=== PATIENT | female | born 2005 | race Caucasian/White ===

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

== ENCOUNTER 2024-01-31 13:08 | Emergency (ER) | payer MEDICAID, SELFPAY ==
[2024-01-31 13:11] VITALS: BP 164/98; PULSE 76; RESP 15; TEMP 36.7; O2SAT 98
[2024-01-31 13:14] VITALS: BP 164/98; PULSE 76; RESP 15; TEMP 36.7; O2SAT 98
--- NOTE | 2024-01-31 13:21 | ED.GENADUL_ITS ---
Discharge Plan Disposition Patient Disposition: Home Condition: Stable Discharge Details Clinical Impression: Cough Primary Care Provider: Gabe Turpin ED Provider: Darrell Painting Home Meds and New Rx's Prescriptions: No Action escitalopram oxalate 20 mg tablet 20 mg PO DAILY Qty: 90 4RF omeprazole 40 mg capsule,delayed release(DR/EC) 40 mg PO DAILY Qty: 90 4RF Discharge Instructions Instructions: Acute Cough (ED) Additional Instructions: You were seen in the emergency department for your acute cough without cold symptoms. You do have a history of pulmonary embolism, we performed laboratory studies that showed no evidence of right heart strain or damage to the heart, no evidence of PE with a negative D-dimer, your chest x-ray shows no acute abnormality and no pneumonia. It may be allergy symptoms that are causing these symptoms with your cough. If you have any concerning continuation of cough especially coughing up blood, tachycardia or fast heart rate or respiratory distress please return to the ED otherwise try [id number] allergy medicines for congestion. Referrals: Gabe Turpin, WHITING MACHINE OPERATOR [Primary Care Provider] - Discharge Data Discharge Date/Time-TO BE ENTERED AT DEPARTURE: 01/31/24 15:42 HPI General Date/Time Provider Initiated Documentation: 01/31/24 13:21 . HPI Narrative: 18 year-old female presents to ED today by POV/ambulating with a chief complaint of sore throat and dry cough with onset for longer than the past week. Quality described as nonproductive cough, mild chest discomfort, sore throat without dysphagia, no radiation to hemoptysis, fever, inability to tolerate PO intake, nausea/vomiting, severe headache. Severity is described as moderate. Palliating factors include nothing specific. Provoking factors include nothing specific. Events leading up to the incident/Associated Symptoms: Patient here for work-up with history of PE last year. Patient not anticoagulated. Related Data Home Medications Medication Instructions Recorded Confirmed omeprazole 40 mg capsule,delayed 40 mg PO DAILY #90 caps 03/24/23 01/31/24 release escitalopram oxalate 20 mg tablet 20 mg PO DAILY #90 tabs 12/09/23 01/31/24 Previous Rx's Medication Instructions Recorded omeprazole 40 mg capsule,delayed 40 mg PO DAILY #90 caps 03/24/23 release escitalopram oxalate 20 mg tablet 20 mg PO DAILY #90 tabs 12/09/23 Allergies Allergy/AdvReac Type Severity Reaction Status Date / Time No Known Allergies Allergy Unverified 12/09/23 08:46 General Stated Complaint: RespSymp MEDINA: 3 Review of Systems All systems reviewed & are unremarkable except as noted in HPI and below Exam Narrative Exam Narrative: GENERAL APPEARANCE: Well-nourished, non-toxic, awake and alert, atraumatic, no acute distress. SKIN: Warm, pink, dry, intact, without rashes/lesions/ulcerations. HEAD: Normocephalic, atraumatic, normal hair distribution for gender/age. EYES: Pupils PERRLA, EOMs intact without nystagmus, normal conjunctiva, no exudates on lids/lashes. ENT: Nares patent, no circumoral cyanosis, no facial swelling, no exudate posterior oropharynx NECK: Supple, trachea midline, painless cervical ROM. LUNGS/CHEST: Lungs CTA bilaterally - no rhonchi/rales/wheezes diffusely, non- labored respirations, normal A/P diameter, symmetrical expansion, no chest wall deformity HEART (CV/PV): Regular rate and rhythm without murmur, no peripheral edema, no JVD. ABDOMEN: Soft, non-distended, no guarding. MSK: Normal ROM, no swelling/deformity to bilateral UEs or LEs, moving all extremities without weakness, no cyanosis, spine midline without tenderness, normal curvature. NEURO: Mental Status AAOx4 - alert to person, place, time, events No facial droop, no forehead involvement. Motor: No focal weakness - strength 5/5 in bilateral UEs and LEs, proximal and distal, symmetric. Sensory: sensation intact to light touch globally. Gait normal: patient ambulated without ataxia into ED room. PSYCH: euthymic, cooperative, pleasant, appropriate speech Course Vital Signs Vital signs: Vital Signs Temperature 36.7 C 01/31/24 13:11 Pulse 76 01/31/24 13:11 Respiratory Rate 15 01/31/24 13:11 Blood Pressure 164/98 H 01/31/24 13:11 Pulse Oximetry 98 01/31/24 13:11 Temperature 36.7 C 01/31/24 13:14 Temperature Source Tympanic 01/31/24 13:14 Pulse 76 01/31/24 13:14 Respiratory Rate 15 01/31/24 13:14 Respiratory Effort Normal 01/31/24 13:14 Respiratory Depth Normal 01/31/24 13:14 Blood Pressure 164/98 H 01/31/24 13:14 Blood Pressure Position Sitting 01/31/24 13:14 Pulse Oximetry 98 01/31/24 13:14 Oxygen Delivery Method Room Air 01/31/24 13:14 Oxygen Flow Rate 0 01/31/24 13:14 Pain Level 0 01/31/24 13:14 Medical Decision Making This dictation utilizes [id number] dictation software and may contain unedited grammatical errors. 18 y/o F presents to ED today with a chief complaint of sore throat, dry cough, ongoing for more than a week- no fevers, nausea/vomiting, abdominal pain, severe shortness of breath, endorses mild chest discomfort. Patient has history of PE last year, not on OCPs currently. Patients' medical history: PE. Family and social history: noncontributory. Pertinent exam findings / vital signs include lungs CTA, no respiratory distress, no tachycardia, benign posterior oropharynx. Differential / pathologies of concern include URI, PNA, PTX, PE. Diagnostic studies of: -CBC, CMP, D-Dimer, BNP, Trop, CRP, EKG, CXR. -CBC benign -CMP benign -D-dimer negative -BNP/Trop no signs of R heart strain -EKG ischemic changes, sinus yoshi 56 bpm -CXR no acute pathology Interventions of: -none. ED Course/Assessment/Plan: 18-year-old female with a history of PE presents with dry cough and chest discomfort, D-dimer is negative for PE workup, Trope and BNP are negative and showed no findings of right heart strain, EKG is benign, chest x-ray shows no pneumonia. Likely viral URI/allergies counseled on OTC cold medicines and strict return criteria for any worsening despite treatment any tachycardia, any worsening chest pain. Findings not consistent with pneumonia, PTX, PE, ACS, right heart strain. Disposition of Cough. Patient verbalized understanding of the plan and return to ED criteria and engaged in shared decision making. Medical Records Medical records reviewed: Yes I reviewed the patient's medical records. Imaging Data Radiologic Study: Attestation: I personally reviewed and interpreted this imaging study as follows: Imaging: X-Ray Radiologist's impression: Exam: XR Chest Exam date and time: 01/31/2024 2:49 PM Age: 18 years old Clinical indication: Other: Cough TECHNIQUE: Imaging protocol: Radiologic exam of the chest. Views: 2 views. COMPARISON: CR XR CHEST 2V PA LATERAL 03/19/2023 3:58 PM FINDINGS: Lungs: Unremarkable. No consolidation. Pleural spaces: Unremarkable. No pleural effusion. No pneumothorax. Heart/Mediastinum: Unremarkable. No cardiomegaly. Bones/joints: Unremarkable. IMPRESSION: No acute findings. Dictated and Authenticated by: Valdo Hardin MD. Ordering:EILEEN Ramírez MD Lab Data Lab results reviewed: Yes I reviewed the patient's lab results. Labs: Laboratory Tests Range/Units 01/31/24 13:50 WBC (4.4-10.8) 10^3/uL 8.25 RBC (3.93-5.22) 10^6/uL 5.31 H Hgb (11.2-15.7) g/dL 15.0 Hct (36.0-46.0) % 45.0 MCV (80-95) fL 85 MCH (27.0-33.0) pg 28.2 MCHC (32.0-36.0) % 33.3 RDW (11.7-14.6) % 13.7 Plt Count (130-400) 10^3/uL 311 MPV (8.0-11.0) fL 9.4 Immature Gran % % 0.2 Neutrophils % % 62.7 Lymphocytes % % 30.1 Monocytes % % 5.9 Eosinophils % % 0.7 Basophils % % 0.4 Nucleated RBC % (0.0-0.3) % 0.0 Absolute Neutrophils (1.2-6.7) 10^3/uL 5.17 Absolute Lymphocytes (1.2-3.4) 10^3/uL 2.48 Absolute Monocytes (0.1-0.8) 10^3/uL 0.49 Absolute Eosinophils (0.0-0.7) 10^3/uL 0.06 Absolute Basophils (0.0-0.2) 10^3/uL 0.03 D-Dimer (<500) ng/mlFEU 304 Sodium (136-145) mmol/L 139 Potassium (3.5-5.1) mmol/L 4.0 Chloride (98-107) mmol/L 105 Carbon Dioxide (21.0-32.0) mmol/L 22.5 Anion Gap (3-11) mmol/L 11.5 H BUN (7-18) mg/dL 10 Creatinine (0.55-1.02) mg/dL 0.6 Est GFR (CKD-EPI 2020) (mL/min/1.73m2) 132.52 Glucose (74-106) mg/dL 92 Calcium (8.5-10.1) mg/dL 8.5 Total Bilirubin (0.2-1.0) mg/dL 0.6 AST (15-37) U/L 22 ALT (14-59) U/L 30 Alkaline Phosphatase (46-116) U/L 47 Troponin I (< or =60) ng/L < 50 C-Reactive Protein (<or=0.5) mg/dL 0.96 H NT-Pro-B Natriuret Pep (<300) pg/mL 290 Total Protein (6.4-8.2) g/dL 7.8 Albumin (3.4-5.0) g/dL 3.6 Quality:[facility] Health Related Social Needs: No Data to Display PFSH All Active Problems (Updated 01/31/24 @ 15:28 by LEANDER Torrez) Cough (Acute) Depression with anxiety (Acute) Left knee pain (Acute) Astigmatism (Acute) Dysarthria (Acute) Eczema (Acute) Asthma (Chronic) Morbid obesity (Acute) Aspiration pneumonia (Acute) Oligomenorrhea (Acute) Pulmonary embolism (Chronic) Surgical History No pertinent past surgical history Family History Mother No problems noted. Father , 41 Heart disease Sister No problems noted. Sister No problems noted. Maternal Grandfather , 40 Emphysema lung COPD (chronic obstructive pulmonary disease) Paternal Grandfather No problems noted. Maternal Grandmother , 40 Bone cancer Paternal Grandmother No problems noted. Other Diabetes Hypertension Social History Smoking/Tobacco Use Status: Never Second Hand Exposure: Yes Smoking risk assessment performed?: Yes Alcohol Intake: never Drug use: Occasionally Substance use type: marijuana Caregiver/Support person: No Household members: family Housing: house Communication Needs: None Do you need help understanding health information?: Rarely current occupation: [employer] Pets and animals: Yes Pets and animals: cat(s) and dog(s) Sexually active: No Do you think of yourself as: bisexual Current gender identity: female What is your relationship status?: never How often do you talk on the phone with friends or family?: once per week How often do you get together with friends or relatives?: once per week How often do you attend adventism or pentecostal services?: decline to answer Do you belong to any clubs or organized social groups?: no Panel score (0-1 are the most socially isolated patients): 0 What type of physical activity do you participate in: weight lifting Duration: 15-30 minutes/day Frequency: 3-4 times per week Enma/Muslim: No preference Special enma needs: No Seatbelt use: always Helmet use: Yes Helmet use: always Drive 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
--- NOTE | 2024-01-31 13:25 | RT.EKG_ITS ---
APPROVED REPORT Exam: Resting ECG Reason for Exam: cough, syncope Patient Location: E HR:56 bpm ECG Measurements Heart Rate 56 AXIS NC 136 P -8 QRSd 83 QRS 48 QT 393 T 20 QTc 381 Conclusion Sinus bradycardia 56 no stemi
[2024-01-31 13:32] VITALS: BP 125/82; PULSE 62; O2SAT 98
[2024-01-31 13:54] LABS: Abs Immature Grans 0.02 10^3/uL (0.0-0.06); Absolute Basophil Count 0.03 10^3/uL (0.0-0.2); Absolute Eosinophil Count 0.06 10^3/uL (0.0-0.7); Absolute Lymphocyte Count 2.48 10^3/uL (1.2-3.4); Absolute Monocyte Count 0.49 10^3/uL (0.1-0.8); Absolute Neutrophil Count 5.17 10^3/uL (1.2-6.7); Basophils % 0.4 %; Eosinophils % 0.7 %; Immature Grans % 0.2 %; Lymphocytes % 30.1 %; MCH 28.2 pg (27.0-33.0); MCHC 33.3 % (32.0-36.0); MCV 85 fL (80-95); MPV 9.4 fL (8.0-11.0); Monocytes % 5.9 %; Neutrophils % 62.7 %; Platelet Count 311 10^3/uL (130-400); RBC 5.31 10^6/uL (3.93-5.22); RDW 13.7 % (11.7-14.6); RDW-SD 42.5 fL; WBC 8.25 10^3/uL (4.4-10.8)
[2024-01-31 14:18] LABS: ALT 30 U/L (14-59); AST 22 U/L (15-37); Albumin 3.6 g/dL (3.4-5.0); Alkaline Phosphatase 47 U/L (46-116); Anion Gap 11.5 mmol/L (3-11); BUN 10 mg/dL (7-18); Bilirubin, Total 0.6 mg/dL (0.2-1.0); C-Reactive Protein 0.96 mg/dL (<or=0.5); CO2 22.5 mmol/L (21.0-32.0); CREATININE 0.6 mg/dL (0.55-1.02); Calcium 8.5 mg/dL (8.5-10.1); Chloride 105 mmol/L (98-107); Estimated GFR 132.52 (mL/min/1.73m2); Glucose 92 mg/dL (74-106); NT-proBNP 290 pg/mL (<300); Sodium 139 mmol/L (136-145); Total Protein 7.8 g/dL (6.4-8.2)
[2024-01-31 14:22] VITALS: BP 126/85; PULSE 61; O2SAT 99
[2024-01-31 14:24] LABS: D-Dimer 304 ng/mlFEU (<500); Troponin I < 50 ng/L (< or =60)
--- NOTE | 2024-01-31 14:59 | DI.RAD_ITS ---
Exam(s) XR CHEST 2V PA LATERAL EXAM: XR CHEST 2V PA LATERAL CLINICAL HISTORY: cough. TECHNIQUE: 2D digital imaging was performed. COMPARISON: No exams available for comparison FINDINGS: 2 views: Heart size is normal. The mediastinum is not widened. Lungs are clear. No infiltrates nor pleural effusions. IMPRESSION: No acute pulmonary findings. DATA REPOSITORY: RADIATION DOSE DELIVERED:
--- NOTE | 2024-01-31 15:18 | DI.VRAD_ITS ---
PROCEDURE INFORMATION: Exam: XR Chest Exam date and time: 01/31/2024 2:49 PM Age: 18 years old Clinical indication: Other: Cough TECHNIQUE: Imaging protocol: Radiologic exam of the chest. Views: 2 views. COMPARISON: CR XR CHEST 2V PA LATERAL 03/19/2023 3:58 PM FINDINGS: Lungs: Unremarkable. No consolidation. Pleural spaces: Unremarkable. No pleural effusion. No pneumothorax. Heart/Mediastinum: Unremarkable. No cardiomegaly. Bones/joints: Unremarkable. IMPRESSION: No acute findings. Dictated and Authenticated by: Valdo Hardin MD. Ordering:EILEEN Ramírez MD
== END 2024-01-31 15:42 | disposition home or self-care (01) ==
PROVIDERS: Emergency Provider Physician Assistant; PCP Nurse Practitioner Family
DX: R05.1 Acute cough (principal); R07.0 Pain in throat; Z86.711 Personal history of pulmonary embolism
CPT/HCPCS: 80053; 93005; 99283; 71046; 83880; 84484; 85025; 85379; 86140; 93010

== ENCOUNTER 2024-02-11 16:12 | Outpatient (REF) | payer MEDICAID, SELFPAY ==
[2024-02-11 22:24] LABS: Clarity Sl Cloudy (Clear); Specific Gravity 1.016 (1.005-1.025)
[2024-02-11 22:25] LABS: Bacteria Few HPF (Negative); Bilirubin Color Interference (Negative); Blood Color Interference (Negative); C & S Indicated? No/Sq. Contamination; Casts Negative LPF (Negative); Crystals Negative HPF (Negative); Epithelial Cells Moderate HPF (Negative); Glucose Color Interference mg/dL (Negative); Ketones Color Interference mg/dL (Negative); Leukocyte Esterase Color Interference (Negative); Mucus Negative (Negative); Nitrite Color Interference (Negative); RBC >50 HPF (0-2); Urobilinogen Color Interference mg/dL (Up to 0.2); WBC 20-50 HPF (0-5)
== END 2024-02-11 16:13 | disposition home or self-care (01) ==
LOC: LBN 16:12
PROVIDERS: PCP Nurse Practitioner Family; Visit Provider Nurse Practitioner Family
DX: R35.0 Frequency of micturition (principal); R30.0 Dysuria; N39.0 Urinary tract infection, site not specified
CPT/HCPCS: 81003; 81015

== ENCOUNTER 2024-03-04 21:04 | Emergency (ER) | payer MEDICAID, SELFPAY ==
--- NOTE | 2024-03-04 21:00 | RT.EKG_ITS ---
APPROVED REPORT Exam: Resting ECG Reason for Exam: presyncope Patient Location: E HR:86 bpm ECG Measurements Heart Rate 86 AXIS SC 142 P 26 QRSd 87 QRS 45 QT 353 T 18 QTc 422 Conclusion Sinus rhythm...normal P axis, V-rate 60- 99 sinus rhtyhm, normal axis, normal intervals, non ischemic
[2024-03-04 21:07] VITALS: BP 151/74; PULSE 82; RESP 18; TEMP 36; O2SAT 99
--- NOTE | 2024-03-04 21:43 | ED.GENADUL_ITS ---
Discharge Plan Disposition Patient Disposition: Home Condition: Improving Discharge Details Chief Complaint: RespSymp Clinical Impression: Syncope Primary Care Provider: Gabe Turpin ED Provider: Carlton Gill Home Meds and New Rx's Prescriptions: No Action escitalopram oxalate 20 mg tablet 20 mg PO DAILY Qty: 90 4RF omeprazole 40 mg capsule,delayed release(DR/EC) 40 mg PO DAILY Qty: 90 4RF Discharge Instructions Instructions: Syncope (Fainting) (DC) Additional Instructions: Please follow-up with your primary care physician. Please return to the emergency department for any worsening symptoms HPI General Date/Time Provider Initiated Documentation: 03/04/24 21:07 . HPI Narrative: 18-year-old female history of PE completed course of anticoagulation no longer on anticoagulation, presents after coughing fit while in the car briefly lost consciousness came to immediately, no chest pain or shortness of breath feeling asymptomatic currently. Related Data Home Medications Medication Instructions Recorded Confirmed omeprazole 40 mg capsule,delayed 40 mg PO DAILY #90 caps 03/24/23 03/04/24 release escitalopram oxalate 20 mg tablet 20 mg PO DAILY #90 tabs 12/09/23 03/04/24 Previous Rx's Medication Instructions Recorded omeprazole 40 mg capsule,delayed 40 mg PO DAILY #90 caps 03/24/23 release escitalopram oxalate 20 mg tablet 20 mg PO DAILY #90 tabs 12/09/23 Allergies Allergy/AdvReac Type Severity Reaction Status Date / Time No Known Allergies Allergy Unverified 03/04/24 21:10 General Stated Complaint: RespSymp MEDINA: 4 Review of Systems Narrative: Review of Systems Constitutional: negative Eyes: negative ENT: negative Cardiovascular: Syncope Respiratory: Cough Gastrointestinal: negative : negative Musculoskeletal: negative Skin: negative Neurologic: negative Psych: negative Exam Narrative Exam Narrative: Physical Examination General: alert, awake, cooperative, resting comfortably, no acute distress HEENT: normocephalic, atraumatic; PERRL, EOM intact, conjunctiva normal; no nasal discharge; moist mucous membranes, oral and pharyngeal mucosa normal, tolerating secretions Neck: supple, trachea midline; full ROM Chest: normal to inspection Respiratory: normal respiratory effort, speaking in full sentences, clear to auscultation, no wheezing, rales or rhonchi Cardiac: regular rate, regular rhythm, S1S2 intact, no murmurs rubs or gallops GI: abdomen soft, non-tender, non-distended; no palpable mass or hepatosplenomegaly Skin: no lesions, rashes or trauma appreciated Neuro: AAOx3, normal speech, moving all extremities Extremities: No peripheral edema Psych: Appropriate mood and affect Course Vital Signs Vital signs: Vital Signs Temperature 36.0 C L 03/04/24 21:07 Pulse 82 03/04/24 21:07 Respiratory Rate 18 03/04/24 21:07 Blood Pressure 151/74 H 03/04/24 21:07 Pulse Oximetry 99 03/04/24 21:07 Temperature 36.0 C L 03/04/24 21:07 Temperature Source Temporal Artery Scan 03/04/24 21:07 Pulse 82 03/04/24 21:07 Respiratory Rate 18 03/04/24 21:07 Respiratory Effort Normal, Non-Labored 03/04/24 21:09 Blood Pressure 151/74 H 03/04/24 21:07 Blood Pressure Position Sitting 03/04/24 21:07 Pulse Oximetry 99 03/04/24 21:07 Oxygen Delivery Method Room Air 03/04/24 21:07 Oxygen Flow Rate 0 03/04/24 21:07 Pain Level 0 03/04/24 21:07 Medical Decision Making 18-year-old female history of PE completed course of anticoagulation, presents after coughing fit that caused her to lose consciousness briefly, no chest pain or shortness of breath hemodynamically stable afebrile nontoxic normal sinus rhythm nonischemic on EKG no signs of arrhythmia, no signs of dehydration no signs of trauma no signs of intoxication, low suspicion for recurrent PE given history and physical high clinical suspicion for vasovagal episode in the setting of coughing fit low suspicion for ACS aortic pathology pneumothorax pneumonia dehydration or electrolyte derangement low suspicion for malignant arrhythmia. Counseled patient at length regarding my thought process, patient comfortable following up closely with primary care physician does not feel strongly about obtaining labs and imaging at this time. Home care instructions and strict return precautions given. test negative. Quality:SDOH Health Related Social Needs: No Data to Display PFSH All Active Problems (Updated 03/04/24 @ 21:46 by Carlton Gill MD) Syncope (Chronic) Depression with anxiety (Acute) Left knee pain (Acute) Astigmatism (Acute) Dysarthria (Acute) Eczema (Acute) Asthma (Chronic) Morbid obesity (Acute) Aspiration pneumonia (Acute) Oligomenorrhea (Acute) Pulmonary embolism (Chronic) Surgical History No pertinent past surgical history Family History Mother No problems noted. Father , 41 Heart disease Sister No problems noted. Sister No problems noted. Maternal Grandfather , 40 Emphysema lung COPD (chronic obstructive pulmonary disease) Paternal Grandfather No problems noted. Maternal Grandmother , 40 Bone cancer Paternal Grandmother No problems noted. 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 Pets and animals: Yes Pets and animals: cat(s) and dog(s) Sexually active: No Do you think of yourself as: bisexual Current gender identity: female What is your relationship status?: never How often do you talk on the phone with friends or family?: once per week How often do you get together with friends or relatives?: once per week How often do you attend mosque or pentecostal services?: decline to answer Do you belong to any clubs or organized social groups?: no Panel score (0-1 are the most socially isolated patients): 0 What type of physical activity do you participate in: weight lifting Duration: 15-30 minutes/day Frequency: 3-4 times per week Enma/Anglican: No preference Special enma needs: No Seatbelt use: always Helmet use: Yes Helmet use: always Drive 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
== END 2024-03-04 21:50 | disposition home or self-care (01) ==
PROVIDERS: Emergency Provider Emergency Medicine; PCP Nurse Practitioner Family
DX: R55 Syncope and collapse (principal); Z86.711 Personal history of pulmonary embolism
CPT/HCPCS: 81025; 93005; 99284; 93010; 99283

== ENCOUNTER 2024-07-05 08:31 | Emergency (ER) | payer MEDICAID, SELFPAY ==
[2024-07-05 08:37] VITALS: BP 148/85; PULSE 92; RESP 16; TEMP 36.6; O2SAT 94
[2024-07-05 08:39] VITALS: BP 150/81; PULSE 91; RESP 16; TEMP 36.6; O2SAT 93
--- NOTE | 2024-07-05 08:44 | W.ED.GENAD ---
Discharge Plan Disposition Patient Disposition: Home Discharge Details Clinical Impression: Hoarseness of voice Primary Care Provider: Gabe Turpin ED Provider: Jurgen Angeles Home Meds and New Rx's Prescriptions: Continued albuterol sulfate 90 mcg/actuation HFA aerosol inhaler 2 inh inhalation Q6H PRN (Reason: shortness of breath or wheezing) Qty: 18 0RF (DME) Aerochamber MV Spacer See Rx Instructions .Route Qty: 1 0RF Rx Instructions: As directed omeprazole 40 mg capsule,delayed release(DR/EC) 40 mg PO DAILY Qty: 90 4RF escitalopram oxalate 20 mg tablet 20 mg PO DAILY Qty: 90 4RF Discharge Instructions Additional Instructions: You were seen in the emergency department for your cough. Your chest x-ray showed no sign of pneumonia. You are receiving steroids which should last for several days. If you develop worsening shortness of breath please return to the emergency department. Otherwise please follow-up with your primary care provider later this week. Discharge Data Discharge Date/Time-TO BE ENTERED AT DEPARTURE: 07/05/24 10:34 HPI General Date/Time Provider Initiated Documentation: 07/05/24 08:44. HPI Narrative: MDM This is an overall very well-appearing normothermic and not tachycardic 19-year-old female with cough fever slight wheeze concerning for exacerbation of reactive airway disease versus viral URI. No significant tonsillar exudates based on Centor criteria I did not swab for strep. Good range of motion in neck so my suspicion is low for retropharyngeal abscess. No nuchal rigidity to suggest meningitis. Uvula is midline so I am not concerned for peritonsillar abscess. Patient did have more significant left-sided wheezes compared to right so we will obtain chest x-ray to assess for pneumonia. No trauma to suggest increased risk for pneumothorax. No pain or proportion to suggest necrotizing soft tissue infection. No dysuria or frequency so my suspicion is low for UTI. No dental pain to suggest periapical abscess. I considered PE however the patient is not having any significant chest pain or leg pain. 10:07 AM Chest x-ray without any acute cardiopulmonary process. I have left facial advised PCP follow-up later this week. Patient and I discussed she should return if she develops fevers chills begins vomiting or sticks any falls. She understood her return indications and was discharged with empiric trial of expectant outpatient management. Chronic conditions affecting the care of the patient: Elevated BMI History obtained from an outside historian: N/A External record review: N/A Diagnostic interpretations performed by me: Per my independent interpretation chest x-ray shows: Question left-sided infiltrate ]Medications: Dexamethasone Social determinants of health affecting disposition: N/A Management discussed with: N/A Treatment/interventions considered: Strep swab but deferred Response to therapies provided: N/A HPI This is a 19-year-old female with history of asthma elevated BMI aspiration pneumonia PE right emergency department via private vehicle with her in the setting of fever cough for the past approximately 1 week. Patient reports that yesterday she only had 1 fever. She says that she lost her voice 3 days ago. She has been using her inhaler more. She has never been hospitalized nor intubated in setting of her asthma. She endorses sore throat. She has not taken any recent falls. She has not been nauseous nor vomiting. She is not having any chest pain. She smokes marijuana daily but denies routine tobacco and alcohol. Exam General: Well-appearing in no acute distress speaking in complete sentences. Hoarse voice. Head: Normocephalic, atraumatic. Eye: Extraocular eye movements intact. No conjunctival injection. No scleral icterus. Ear, nose, mouth, throat: Grossly normal inspection. Normal voice, handling secretions normally. Uvula midline. No significant posterior oropharynx erythema. No tonsillar exudates. Neck: Trachea midline. Good range of motion in neck Cardiovascular: Well-perfused distal extremities. Respiratory: Nonlabored respiration. Trace left-sided trace wheeze. No respiratory distress. Gastrointestinal: Nondistended abdomen. Musculoskeletal: No edema. Moving all 4 extremities spontaneously. Skin: Normal for age and race, grossly normal temperature and turgor. No acute rash. Neurologic: Alert and appropriate, no apparent acute deficits. Psychiatric: Mood and manner are appropriate. Grooming and personal hygiene are appropriate. Related Data Home Medications ?Medication ?Instructions ?Recorded ?Confirmed albuterol sulfate 90 mcg/actuation 2 inh inhalation Q6H PRN shortness 03/08/24 07/05/24 aerosol inhaler of breath or wheezing #18 grams inhalational spacing device #1 ea 03/08/24 07/05/24 (Aerochamber MV spacer) escitalopram oxalate 20 mg tablet 20 mg PO DAILY #90 tabs 04/05/24 07/05/24 omeprazole 40 mg capsule,delayed 40 mg PO DAILY #90 caps 04/05/24 07/05/24 release Previous Rx's ?Medication ?Instructions ?Recorded albuterol sulfate 90 mcg/actuation 2 inh inhalation Q6H PRN shortness 03/08/24 aerosol inhaler of breath or wheezing #18 grams inhalational spacing device #1 ea 03/08/24 (Aerochamber MV spacer) escitalopram oxalate 20 mg tablet 20 mg PO DAILY #90 tabs 04/05/24 omeprazole 40 mg capsule,delayed 40 mg PO DAILY #90 caps 04/05/24 release Allergies Allergy/AdvReac Type Severity Reaction Status Date / Time No Known Allergies Allergy Unverified 07/05/24 08:36 General Stated Complaint: RespSymp MEDINA: 4 Course Vital Signs Vital signs: Vital Signs Temperature 36.6 C 07/05/24 08:37 Pulse 92 H 07/05/24 08:37 Respiratory Rate 16 07/05/24 08:37 Blood Pressure 148/85 H 07/05/24 08:37 Pulse Oximetry 94 07/05/24 08:37 Temperature 36.6 C 07/05/24 08:39 Temperature Source Temporal Artery Scan 07/05/24 08:39 Pulse 91 H 07/05/24 08:39 Respiratory Rate 16 07/05/24 08:39 Respiratory Effort Normal, Non-Labored 07/05/24 08:39 Blood Pressure 150/81 H 07/05/24 08:39 Blood Pressure Position Sitting 07/05/24 08:39 Pulse Oximetry 93 07/05/24 08:39 Oxygen Delivery Method Room Air 07/05/24 08:39 Oxygen Flow Rate 0 07/05/24 08:37 Pain Level 6 07/05/24 08:39 Medical Decision Making Quality:SDOH Health Related Social Needs: Health related social needs inadequate housing(Z59.1) Health related social needs details N/A PFSH All Active Problems (Updated 07/05/24 @ 10:08 by Jurgen Angeles MD) Hoarseness of voice (Acute) Depression with anxiety (Acute) Left knee pain (Acute) Astigmatism (Acute) Dysarthria (Acute) Eczema (Acute) Asthma (Chronic) Morbid obesity (Acute) Aspiration pneumonia (Acute) Oligomenorrhea (Acute) Pulmonary embolism (Chronic) Surgical History No pertinent past surgical history Family History (Updated 05/06/24 @ 12:16 by Iesha Echevarria) Mother Depression Substance use disorder Father , 41 Heart disease Asthma Hyperlipidemia Hypertension Substance use disorder Sister Depression Sister Depression Maternal Grandfather , 40 Emphysema lung COPD (chronic obstructive pulmonary disease) Alcohol use disorder Depression Substance use disorder Paternal Grandfather Alcohol use disorder Substance use disorder Maternal Grandmother , 40 Bone cancer Alcohol use disorder Depression Substance use disorder Paternal Grandmother Substance use disorder Other Diabetes Social History (Updated 05/06/24 @ 12:14 by Iesha Echevarria) Smoking/Tobacco Use Status: Never Second Hand Exposure: Yes Smoking risk assessment performed?: Yes Alcohol Intake: never Drug use: Daily Substance use type: marijuana Adopted: No Caregiver/Support person: No Household members: spouse Housing: house Number of Children: 0 number of grandchildren: 0 Communication Needs: None Education Level: high school Do you need help understanding health information?: Never 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 Pets and animals: Yes Pets and animals: cat(s) and dog(s) Sexually active: No Do you think of yourself as: lesbian/moreno/homosexual Current gender identity: female What is your relationship status?: How often do you talk on the phone with friends or family?: three or more times per week How often do you get together with friends or relatives?: once per week How often do you attend mosque or pentecostal services?: 1-3 times per year Do you belong to any clubs or organized social groups?: no Panel score (0-1 are the most socially isolated patients): 2 Enma/Jewish: No preference Special enma needs: No Seatbelt use: always Helmet use: Yes Helmet use: always 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
--- NOTE | 2024-07-05 08:45 | DI.RAD_ITS ---
Exam(s) XR CHEST 2V PA LATERAL EXAM: XR CHEST 2V PA LATERAL CLINICAL HISTORY: Shortness of breath cough. TECHNIQUE: 2D digital imaging was performed. COMPARISON: CR,XR XR CHEST 2V PA LATERAL from 01/31/2024 FINDINGS: 2 views: Heart size is normal. The mediastinum is not widened. Lungs are clear. No infiltrates nor pleural effusions. IMPRESSION: No acute pulmonary findings. DATA REPOSITORY: RADIATION DOSE DELIVERED:
[2024-07-05] MEDS: Dexamethasone 4 MG TAB 8 MG PO (09:16)
[2024-07-05 10:33] VITALS: PULSE 82; RESP 16; O2SAT 96
== END 2024-07-05 10:34 | disposition home or self-care (01) ==
PROVIDERS: Emergency Provider Emergency Medicine; PCP Nurse Practitioner Family
DX: R05.1 Acute cough (principal); R49.0 Dysphonia; R06.2 Wheezing; Z87.09 Personal history of other diseases of the respiratory system
CPT/HCPCS: 99283; 71046; J8540

== ENCOUNTER 2024-08-02 20:28 | Emergency (ER) | payer MEDICAID, SELFPAY ==
--- NOTE | 2024-08-02 20:30 | RT.EKG_ITS ---
APPROVED REPORT Exam: Resting ECG Reason for Exam: syncope Patient Location: E HR:92 bpm ECG Measurements Heart Rate 92 AXIS IL 154 P 65 QRSd 88 QRS 73 QT 356 T 28 QTc 441 Conclusion Sinus rhythm 92 normal axis no stemi
[2024-08-02 20:38] VITALS: BP 137/86; PULSE 92; RESP 16; TEMP 36.6; O2SAT 96
--- NOTE | 2024-08-02 21:02 | ED.GENADUL_ITS ---
Discharge Plan Disposition Patient Disposition: Home Condition: Stable Discharge Details Clinical Impression: Syncope, Acute bronchospasm Primary Care Provider: Gabe Turpin ED Provider: Gilda Schaeffer Home Meds and New Rx's Prescriptions: No Action albuterol sulfate 90 mcg/actuation HFA aerosol inhaler 2 inh inhalation Q6H PRN (Reason: shortness of breath or wheezing) Qty: 18 0RF (DME) Aerochamber MV Spacer See Rx Instructions .Route Qty: 1 0RF Rx Instructions: As directed omeprazole 40 mg capsule,delayed release(DR/EC) 40 mg PO DAILY Qty: 90 4RF escitalopram oxalate 20 mg tablet 20 mg PO DAILY Qty: 90 4RF Discharge Instructions Additional Instructions: * avoid smoking pot * CT scan does not reveal a blood clot and your EKG is normal. * you are likely having a bronchospasm from smoking and this is causing you to pass out. HPI General Date/Time Provider Initiated Documentation: 08/02/24 20:37 . Limitations to Documentation: no limitations . Information obtained by: patient . HPI Narrative: 19-year-old female with past medical history including unprovoked pulmonary embolism presents for evaluation of syncope. She reports that yesterday and today she has had syncopal events. Both times she has been smoking pot and became short of breath and then she passed out. She states that once she came up awake she started having coughing. It would cough so hard that she would throw up. The patient denies any preceding symptoms and has not had syncope prior to the smoking pot. She reports that over the last few months he has noted that her asthma symptoms seem to be worse. She completed a 6-month course of Eliquis last July 2023. Related Data Home Medications ?Medication ?Instructions ?Recorded ?Confirmed albuterol sulfate 90 mcg/actuation 2 inh inhalation Q6H PRN shortness 03/08/24 08/02/24 aerosol inhaler of breath or wheezing #18 grams inhalational spacing device #1 ea 03/08/24 08/02/24 (Aerochamber MV spacer) escitalopram oxalate 20 mg tablet 20 mg PO DAILY #90 tabs 04/05/24 08/02/24 omeprazole 40 mg capsule,delayed 40 mg PO DAILY #90 caps 04/05/24 08/02/24 release Previous Rx's ?Medication ?Instructions ?Recorded albuterol sulfate 90 mcg/actuation 2 inh inhalation Q6H PRN shortness 03/08/24 aerosol inhaler of breath or wheezing #18 grams inhalational spacing device #1 ea 03/08/24 (Aerochamber MV spacer) escitalopram oxalate 20 mg tablet 20 mg PO DAILY #90 tabs 04/05/24 omeprazole 40 mg capsule,delayed 40 mg PO DAILY #90 caps 04/05/24 release Allergies Allergy/AdvReac Type Severity Reaction Status Date / Time No Known Allergies Allergy Verified 08/02/24 20:43 General Stated Complaint: Dizzy/Sync MEDINA: 3 Exam Narrative Exam Narrative: Review of Systems: All systems reviewed & are unremarkable except as noted in HPI and below Well-developed, no acute distress NCAT RRR no murmur Unlabored respiratory effort clear bilaterally Nondistended abdomen Extremities w/o edema Course Vital Signs Vital signs: Vital Signs Temperature 36.6 C 08/02/24 20:38 Pulse 92 H 08/02/24 20:38 Respiratory Rate 16 08/02/24 20:38 Blood Pressure 137/86 08/02/24 20:38 Pulse Oximetry 96 08/02/24 20:38 Temperature 36.6 C 08/02/24 20:38 Pulse 92 H 08/02/24 20:38 Respiratory Rate 16 08/02/24 20:38 Respiratory Effort Normal 08/02/24 20:44 Respiratory Depth Normal 08/02/24 20:44 Respiratory Pattern Normal 08/02/24 20:44 Blood Pressure 137/86 08/02/24 20:38 Pulse Oximetry 96 08/02/24 20:38 Oxygen Delivery Method Room Air 08/02/24 20:38 Oxygen Flow Rate 0 08/02/24 20:38 Pain Level 0 08/02/24 20:38 Medical Decision Making Emergent evaluation of syncope. Patient is asymptomatic at this time and hemodynamically stable. EKG reviewed and independently interpreted: Sinus 92 normal axis. The patient is likely having bronchospasm after smoking pot and this is causing her syncopal episodes however given her history of blood clots, I think that it would be prudent to evaluate with a CTA. Reviewed. No leukocytosis or anemia. BMP is without electrolyte derangement. CTA without evidence of PE. advised to stop smoking pot. Quality:SDOH Health Related Social Needs: Health related social needs inadequate housing(Z59.1) Health related social needs details N/A PFSH All Active Problems (Updated 08/02/24 @ 22:36 by Gilda Schaeffer MD) Acute bronchospasm (Acute) Syncope (Chronic) Patient desires (Acute) Hoarseness of voice (Acute) Depression with anxiety (Acute) Left knee pain (Acute) Astigmatism (Acute) Dysarthria (Acute) Eczema (Acute) Asthma (Chronic) Morbid obesity (Acute) Aspiration pneumonia (Acute) Oligomenorrhea (Acute) Pulmonary embolism (Chronic) Surgical History No pertinent past surgical history Family History Mother Depression Substance use disorder Father , 41 Heart disease Asthma Hyperlipidemia Hypertension Substance use disorder Sister Depression Sister Depression Maternal Grandfather , 40 Emphysema lung COPD (chronic obstructive pulmonary disease) Alcohol use disorder Depression Substance use disorder Paternal Grandfather Alcohol use disorder Substance use disorder Maternal Grandmother , 40 Bone cancer Alcohol use disorder Depression Substance use disorder Paternal Grandmother Substance use disorder Other Diabetes Social History Smoking/Tobacco Use Status: Never Second Hand Exposure: Yes Smoking risk assessment performed?: Yes Alcohol Intake: never Drug use: Daily Substance use type: marijuana Adopted: No Caregiver/Support person: No Household members: spouse Housing: house Number of Children: 0 number of grandchildren: 0 Communication Needs: None Education Level: high school Do you need help understanding health information?: Never 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 Pets and animals: Yes Pets and animals: cat(s) and dog(s) Sexually active: No Do you think of yourself as: lesbian/moreno/homosexual Current gender identity: female What is your relationship status?: How often do you talk on the phone with friends or family?: three or more times per week How often do you get together with friends or relatives?: once per week How often do you attend hindu or pentecostal services?: 1-3 times per year Do you belong to any clubs or organized social groups?: no Panel score (0-1 are the most socially isolated patients): 2 Duration: 15-30 minutes/day Frequency: 3-4 times per week Enma/Rastafarian: No preference Special enma needs: No Seatbelt use: always Helmet use: Yes Helmet use: always Drive intox or ride w/intox truck 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
[2024-08-02 21:18] LABS: Abs Immature Grans 0.03 10^3/uL (0.0-0.06); Absolute Basophil Count 0.05 10^3/uL (0.0-0.2); Absolute Eosinophil Count 0.11 10^3/uL (0.0-0.7); Absolute Lymphocyte Count 3.18 10^3/uL (1.2-3.4); Absolute Monocyte Count 0.56 10^3/uL (0.1-0.8); Absolute Neutrophil Count 5.73 10^3/uL (1.2-6.7); Basophils % 0.5 %; Eosinophils % 1.1 %; HCT 43.5 % (36.0-46.0); HGB 14.1 g/dL (11.2-15.7); Immature Grans % 0.3 %; Lymphocytes % 32.9 %; MCH 27.8 pg (27.0-33.0); MCHC 32.4 % (32.0-36.0); MCV 86 fL (80-95); MPV 9.2 fL (8.0-11.0); Monocytes % 5.8 %; Neutrophils % 59.4 %; Platelet Count 310 10^3/uL (130-400); RBC 5.08 10^6/uL (3.93-5.22); RDW 13.2 % (11.7-14.6); RDW-SD 40.7 fL; WBC 9.66 10^3/uL (4.4-10.8)
[2024-08-02] MEDS: Normal Saline - Diluent 50 ML VIAL IJ (21:24)
[2024-08-02] MEDS: Omnipaque 350 MG/ML 100 ML BTL IJ (21:25)
[2024-08-02 21:26] LABS: Anion Gap 7.8 mmol/L (3-11); BUN 11 mg/dL (7-18); CO2 26.2 mmol/L (21.0-32.0); CREATININE 0.7 mg/dL (0.55-1.02); Calcium 8.9 mg/dL (8.5-10.1); Chloride 104 mmol/L (98-107); Glucose 92 mg/dL (74-106); Potassium 3.6 mmol/L (3.5-5.1); Sodium 138 mmol/L (136-145)
--- NOTE | 2024-08-02 21:38 | DI.CT_ITS ---
Exam(s) CT CHEST PE CTA EXAM: CT CHEST PE CTA CLINICAL HISTORY: sob syncope prior pe. TECHNIQUE: Imaging Protocol: CT angiography of the chest was performed using pulmonary embolus ranjeet col. Multi planar reconstructions were performed. CONTRAST MATERIAL: Intravenous: Omnipaque 350 Contrast volume: 100 cc COMPARISON: CT CT CHEST PE CTA from 12/08/2022 CR XR CHEST 2V PA LATERAL from 07/05/2024 FINDINGS: CHEST: PULMONARY ARTERIES: There are no intraluminal filling defects to suggest acute pulmonary emboli. LUNGS: No evidence of pulmonary infarction. Right lung is clear. There are mild benign-appearing in creased markings in the anterior segment of the left upper lobe and superior lingular segment. No ai r bronchograms.. There are no pleural effusions. MEDIASTINUM: There is no hilar nor mediastinal adenopathy. CARDIAC: Heart size normal. No pericardial effusion.Caliber of the thoracic aorta is within normal l imits. No dissection. There is no significant shift of the interventricular septum. PARTIALLY VISUALIZED UPPERMOST ABDOMEN: No adrenal masses. OSSEOUS: No significant osseous lesions.No fractures.. IMPRESSION: 1. No evidence of acute pulmonary emboli. No evidence of pulmonary infarction. 2. Mild benign-appearing increased markings are noted in the anterior segment of the left upper lobe and superior lingular segment the left lung. No pleural effusions RADIATION DOSE DELIVERED: 123.49mGy.cm Total DLP DATA REPOSITORY: All CT scans at this facility are submitted to the National Radiology Data Registry (NRDR) Dose Index Registry (DIR) with the [employer] (A[employer]). RADIATION OPTIMIZATION: All CT scans at this facility use at least one of these dose optimization te chniques: automated exposure control; mA and/or kV adjustment per patient size (includes targeted exa ms where dose is matched to clinical indication); or iterative reconstruction.
--- NOTE | 2024-08-02 23:05 | DI.VRAD_ITS ---
PROCEDURE INFORMATION: Exam: CTA Chest With Contrast Exam date and time: 08/02/2024 9:26 PM Age: 19 years old Clinical indication: Shortness of breath; Patient HX: Syncope, HX of pe TECHNIQUE: Imaging protocol: Computed tomographic angiography of the chest with contrast. Exam focused on the arteries. 3D rendering (Not supervised by radiologist): MIP and/or 3D reconstructed images were created by the technologist. Contrast material: OMNIPAQUE 350; Contrast volume: 100 ml; Contrast route: INTRAVENOUS (IV); COMPARISON: CT CHEST PE CTA 12/08/2022 2:42 PM FINDINGS: Pulmonary arteries: Normal. No pulmonary emboli. Aorta: Unremarkable. No aortic aneurysm. No aortic dissection. Lungs: Unremarkable. No consolidation. No masses. Pleural spaces: Unremarkable. No pneumothorax. No pleural effusion. Heart: Unremarkable. No cardiomegaly. No pericardial effusion. Lymph nodes: Unremarkable. No enlarged lymph nodes. Bones/joints: Unremarkable. No acute fracture. Soft tissues: Unremarkable. IMPRESSION: No acute findings. Dictated and Authenticated by: James Rothman MD. Ordering:[facility] Laury Montalvo MD
[2024-08-02 23:20] VITALS: BP 116/82; PULSE 68; RESP 16; TEMP 36.7; O2SAT 98
== END 2024-08-02 23:23 | disposition home or self-care (01) ==
PROVIDERS: Emergency Provider Emergency Medicine; PCP Nurse Practitioner Family
DX: R55 Syncope and collapse (principal); J98.01 Acute bronchospasm; Z86.711 Personal history of pulmonary embolism; F12.90 Cannabis use, unspecified, uncomplicated
CPT/HCPCS: 36415; 71275; 80048; 93005; 99285; 85025; 93010; 99284; J3490

== ENCOUNTER 2024-12-01 19:45 | Emergency (ER) | payer MEDICAID, SELFPAY ==
[2024-12-01 19:54] VITALS: BP 137/83; PULSE 70; RESP 16; TEMP 36.6; O2SAT 98
[2024-12-01 19:59] VITALS: BP 137/83; PULSE 70; RESP 16; TEMP 36.6; O2SAT 97
[2024-12-01] MEDS: Benzocaine 20% Gel 30 GM JAR MM (20:16)
--- NOTE | 2024-12-01 20:16 | W.ED.GENAD ---
Discharge Plan Disposition Patient Disposition: Home Condition: Stable Discharge Details Clinical Impression: Pain, dental Primary Care Provider: Gabe Turpin ED Provider: Gilda Schaeffer Home Meds and New Rx's Prescriptions: No Action albuterol sulfate 90 mcg/actuation HFA aerosol inhaler 2 inh inhalation Q6H PRN (Reason: shortness of breath or wheezing) Qty: 18 0RF (DME) Aerochamber MV Spacer See Rx Instructions .Route Qty: 1 0RF Rx Instructions: As directed omeprazole 40 mg capsule,delayed release(DR/EC) 40 mg PO DAILY Qty: 90 4RF escitalopram oxalate 20 mg tablet 20 mg PO DAILY Qty: 90 4RF Discharge Instructions Instructions: Dental Pain ED Additional Instructions: Use a topical medication for numbing as needed. Continue Tylenol every 4 hours, not to exceed 4 g in a 24-hour period. please follow-up with your dentist as scheduled if you develop any facial swelling, drainage or gum irritation and swelling, please present for reevaluation. HPI General Date/Time Provider Initiated Documentation: 12/01/24 20:08. Limitations to Documentation: no limitations. Information obtained by: patient. HPI Narrative: 19-year-old female without significant past medical history presents for evaluation of right lower tooth pain. She reports that it feels like her wisdom tooth. It is not associated with facial swelling, gum fullness or drainage. She reports pain over the last week. She did take a dose of Motrin today. She has an appointment scheduled with her dentist in a few weeks. Related Data Home Medications ?Medication ?Instructions ?Recorded ?Confirmed albuterol sulfate 90 mcg/actuation 2 inh inhalation Q6H PRN shortness 03/08/24 12/01/24 aerosol inhaler of breath or wheezing #18 grams inhalational spacing device #1 ea 03/08/24 12/01/24 (Aerochamber MV spacer) escitalopram oxalate 20 mg tablet 20 mg PO DAILY #90 tabs 04/05/24 12/01/24 omeprazole 40 mg capsule,delayed 40 mg PO DAILY #90 caps 04/05/24 12/01/24 release Previous Rx's ?Medication ?Instructions ?Recorded albuterol sulfate 90 mcg/actuation 2 inh inhalation Q6H PRN shortness 03/08/24 aerosol inhaler of breath or wheezing #18 grams inhalational spacing device #1 ea 03/08/24 (Aerochamber MV spacer) escitalopram oxalate 20 mg tablet 20 mg PO DAILY #90 tabs 04/05/24 omeprazole 40 mg capsule,delayed 40 mg PO DAILY #90 caps 04/05/24 release Allergies Allergy/AdvReac Type Severity Reaction Status Date / Time No Known Allergies Allergy Verified 12/01/24 20:00 General Stated Complaint: DentalOral MEDINA: 4 Exam Narrative Exam Narrative: Review of Systems: All systems reviewed & are unremarkable except as noted in HPI and below Well-developed, no acute distress NCAT No facial swelling, no cervical adenopathy, floor of mouth is soft, right lower wisdom tooth is tender to palpation without any evidence of odontogenic abscess or gum irritation or abnormality Course Vital Signs Vital signs: Vital Signs Temperature 36.6 C 12/01/24 19:54 Pulse 70 12/01/24 19:54 Respiratory Rate 16 12/01/24 19:54 Blood Pressure 137/83 12/01/24 19:54 Pulse Oximetry 98 12/01/24 19:54 Temperature 36.6 C 12/01/24 19:59 Temperature Source Oral 12/01/24 19:59 Pulse 70 12/01/24 19:59 Respiratory Rate 16 12/01/24 19:59 Blood Pressure 137/83 12/01/24 19:59 Blood Pressure Position Sitting 12/01/24 19:59 Pulse Oximetry 97 12/01/24 19:59 Oxygen Delivery Method Room Air 12/01/24 19:54 Oxygen Flow Rate 0 12/01/24 19:54 Pain Level 4 12/01/24 20:02 Medical Decision Making Emergent evaluation of dental pain. On examination there is no sign of deep space infection or odontogenic abscess. Her wisdom tooth appears slightly impacted. Based on her examination I do not feel that antibiotics are indicated. She was provided some topical benzocaine and recommended to take Tylenol. Return precautions advised otherwise patient should follow-up with her dentist. Quality:SDOH Health Related Social Needs: Health related social needs details N/A PFSH All Active Problems (Updated 12/01/24 @ 20:10 by Gilda Schaeffer MD) Pain, dental (Acute) Patient desires (Acute) Depression with anxiety (Acute) Left knee pain (Acute) Astigmatism (Acute) Dysarthria (Acute) Eczema (Acute) Asthma (Chronic) Morbid obesity (Acute) Aspiration pneumonia (Acute) Oligomenorrhea (Acute) Pulmonary embolism (Chronic) Surgical History No pertinent past surgical history Family History Mother Depression Substance use disorder Father , 41 Heart disease Asthma Hyperlipidemia Hypertension Substance use disorder Sister Depression Sister Depression Maternal Grandfather , 40 Emphysema lung COPD (chronic obstructive pulmonary disease) Alcohol use disorder Depression Substance use disorder Paternal Grandfather Alcohol use disorder Substance use disorder Maternal Grandmother , 40 Bone cancer Alcohol use disorder Depression Substance use disorder Paternal Grandmother Substance use disorder Other Diabetes Social History Smoking/Tobacco Use Status: Never Second Hand Exposure: Yes Smoking risk assessment performed?: Yes Alcohol Intake: never Drug use: Daily Substance use type: marijuana Adopted: No Caregiver/Support person: No Household members: spouse Housing: house Number of Children: 0 number of grandchildren: 0 Communication Needs: None Education Level: high school Do you need help understanding health information?: Never 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 Pets and animals: Yes Pets and animals: cat(s) and dog(s) Sexually active: No Do you think of yourself as: lesbian/moreno/homosexual Current gender identity: female What is your relationship status?: How often do you talk on the phone with friends or family?: three or more times per week How often do you get together with friends or relatives?: once per week How often do you attend caodaism or gnosticism services?: 1-3 times per year Do you belong to any clubs or organized social groups?: no Panel score (0-1 are the most socially isolated patients): 2 Duration: 15-30 minutes/day Frequency: 3-4 times per week Enma/Zoroastrianism: No preference Special enma needs: No Seatbelt use: always Helmet use: Yes Helmet use: always Drive intox or ride w/intox tram driver: No Firearms in home: No Do you feel safe at home: Yes Do you feel safe in your relationship?: Yes Victim of physical abuse: No Victim of emotional abuse: No Victim of sexual abuse: No Would you like helpful sources: No Female Reproductive History Menstrual control method: none History History 0 Para Hx # Term Pregnancies Multiple births Hx # Pregnancies Ectopic pregnancies AB induced Hx Number of Living Children AB spontaneous PAWSS Have you Been Recently Intoxicated or Drunk Within the Last 30 days?: No Have you Ever Experienced Previous Episodes of Alcohol Withdrawal?: No Have you ever Experienced Withdrawal Seizures?: No Have you ever Experienced Delirium Tremens(DT)s?: No Have you ever undergone Alcohol Rehabilitation Treatment (i.e, inpt ot outpatient treatment programs)?: No Have you ever Experienced Blackouts?: No Have you ever Combined Alcohol with other Downers within the last 90 days?: No Have you ever Combined Alcohol with any other Substance of Abuse during the last 90 days?: No Positive Blood Alcohol level on Presentation? [PCS.BAL]: No Evidence of Increased Autonomic Activity (i.e. HR>120, tremor, sweating, agitation, nausea)?: No Result: 0
== END 2024-12-01 20:18 | disposition home or self-care (01) ==
LOC: ER 20:24
PROVIDERS: Emergency Provider Emergency Medicine; PCP Nurse Practitioner Family
DX: K08.89 Other specified disorders of teeth and supporting structures (principal)
CPT/HCPCS: 99283

== ENCOUNTER 2025-07-16 11:24 | Emergency (ER) | payer MEDICAID, SELFPAY ==
[2025-07-16 11:30] VITALS: BP 121/76; PULSE 86; RESP 20; TEMP 36.8; O2SAT 94
--- NOTE | 2025-07-16 11:30 | DI.RAD_ITS ---
Exam(s) XR KNEE RT 4V AP,LAT,BARBARA,PAT EXAM: XR KNEE RT 4V AP,LAT,BARBARA,PAT CLINICAL HISTORY: fall onto R. knee, pain with weight bearing. TECHNIQUE: 2D digital imaging was performed. COMPARISON: CR XR KNEE LT 3V AP,LAT,BARBARA from 04/29/2023 FINDINGS: Four views There is abnormal lateral position of the patella and there is a a fracture defect off the posterior medial facet of the patella. The fracture fragment is evident adjacent to the outer aspect of the lateral femoral condyle. There is indistinctness of the medial patellar retinaculum. There is a prominent joint effusion-hemarthrosis. Bone density is normal. However, there is incidental note of an eccentric sclerotic bone lesion in the proximal tibial metaphysis-diaphysis which measures 4.2 cm length. 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 IMPRESSION: Findings are consistent with recent lateral dislocation/impaction of the patella. There is a fracture off the posterior medial patella which remains lateral to the lateral femoral condyle, this being the site of recent dislocation/impaction of the patella. Joint effusion-hemarthrosis. Also suspect tearing of the medial patellar retinaculum. Incidental note of sclerotic eccentric bone lesion in the proximal tibia as described above. 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 Preliminary V rad report was reviewed. Final report called by myself to ER physician 07/16/2025 4:05 p.m. DATA REPOSITORY: RADIATION DOSE DELIVERED:
[2025-07-16] MEDS: Ibuprofen 600 MG TAB PO (12:10)
[2025-07-16] MEDS: Acetaminophen 500 MG TAB 1000 MG PO (12:10)
--- NOTE | 2025-07-16 13:29 | DI.VRAD_ITS ---
PROCEDURE INFORMATION: Exam: XR Right Knee Exam date and time: 07/16/2025 12:38 PM Age: 20 years old Clinical indication: Injury or trauma; Fall; Blunt trauma; Knee; Right TECHNIQUE: Imaging protocol: Radiologic exam of the right knee. Views: 4 or more views. COMPARISON: US EXTREMITY VENOUS BI 12/09/2022 2:30 PM FINDINGS: Bones/joints: 14 mm angelo of bone along the lateral aspect of the femoral condyle on the sunrise view may represent acute avulsion fracture.. Lateral subluxation of the patella with respect to the femur seen on the sunrise view. . Moderate suprapatellar joint effusion. Elongated sclerotic lesion along the posterior aspect of the proximal tibia 4.2 x 1.9 cm may represent nonossifying fibroma or fibrous dysplasia. Soft tissues: Soft tissue swelling of the knee IMPRESSION: 1. 14 mm angelo of bone along the lateral aspect of the femoral condyle on the sunrise view may represent acute avulsion fracture.. 2. Lateral subluxation of the patella with respect to the femur seen on the sunrise view. . 3. Moderate suprapatellar joint effusion. 4. Elongated sclerotic lesion along the posterior aspect of the proximal tibia 4.2 x 1.9 cm may represent nonossifying fibroma or fibrous dysplasia. Dictated and Authenticated by: Larry Carvajal MD. Orderin St. Rylan Jeong MD
--- NOTE | 2025-07-16 14:09 | W.ED.GENAD ---
Discharge Plan Disposition Patient Disposition: Home Condition: Stable Discharge Details Clinical Impression: Internal derangement of knee, Avulsion fracture of condyle of right femur, Suprapatellar swelling of knee joint Primary Care Provider: Gabe Turpin ED Provider: Adenike Carson Home Meds and New Rx's Prescriptions: No Action albuterol sulfate 90 mcg/actuation HFA aerosol inhaler 2 inh inhalation Q6H PRN (Reason: shortness of breath or wheezing) Qty: 18 0RF (DME) Aerochamber MV Spacer See Rx Instructions .Route Qty: 1 0RF Rx Instructions: As directed escitalopram oxalate 20 mg tablet 20 mg PO DAILY Qty: 90 4RF omeprazole 40 mg capsule,delayed release(DR/EC) 40 mg PO DAILY Qty: 90 4RF Discharge Instructions Instructions: Internal Derangement of the Knee (DC) Additional Instructions: You were seen in the emergency department today for evaluation of a knee injury. In our department a full physical examination performed and had an x-ray that showed some swelling above your kneecap, and a small chip fracture which may represent a ligament injury. Your kneecap sits slightly to the lateral or side aspect of your knee. You were placed in a knee immobilizer and should weight-bear as tolerated, protecting the knee from injury with crutches as needed. Please use therapeutic dosing of Tylenol (acetaminophen) & Advil (ibuprofen) in an alternating fashion as follows: Take 1000mg of Tylenol every 6 hours without missing doses- that is 4 times per day. Senior Living in between the Tylenol doses, take 600mg of Advil also on a 6 hour schedule, that is also 4 times per day. With this strategy, you will be taking something for fever/pain as often as every 3 hours. The daily maximum dosing of Tylenol is 4000mg, and the daily maximum dosing of Advil is 2400mg. Please note that some common cold medications & prescription pain medications may contain acetaminophen and you need to read OTC drug labels and factor that in to maximum daily doses. You should use ice and elevation for swelling Please follow-up with your primary care provider in the next few days to discuss this visit and any symptoms that change, worsen, or persist. Thank you for allowing us to be part of your care. Stand Alone Forms: Work Release Referrals: Nemesio Swanson MD [ [facility] STAFF PHYSICIAN, Orthopaedic Surgical] - 1 week Discharge Data Discharge Date/Time-TO BE ENTERED AT DEPARTURE: 07/16/25 14:41 HPI General Mode of arrival: ambulatory. Date/Time Provider Initiated Documentation: 07/16/25 11:33. Limitations to Documentation: no limitations. Information obtained by: patient, family and old records reviewed. HPI Narrative: This is a 20-year-old female patient with a past medical history significant for GERD, presenting for evaluation of a right knee injury. The patient slipped on a puddle and fell, landing on her right knee. She immediately had pain primarily over the lateral aspect and kneecap area. She has been able to range her knee but it feels uncomfortable, she has reproduction of pain with bearing weight. States that she has a history of internal derangement on the left side in the past. Denies numbness or tingling distal to this injury, did not injure any other part of her body, and this fall was not preceded by any syncope, chest pain, dizziness, etc. Related Data Home Medications Medication Instructions Recorded Confirmed albuterol sulfate 90 mcg/actuation 2 inh inhalation Q6H PRN shortness 03/08/24 07/16/25 aerosol inhaler of breath or wheezing #18 grams inhalational spacing device #1 ea 03/08/24 07/16/25 (Aerochamber MV spacer) escitalopram oxalate 20 mg tablet 20 mg PO DAILY #90 tabs 05/02/25 07/16/25 omeprazole 40 mg capsule,delayed 40 mg PO DAILY #90 caps 05/02/25 07/16/25 release Previous Rx's Medication Instructions Recorded albuterol sulfate 90 mcg/actuation 2 inh inhalation Q6H PRN shortness 03/08/24 aerosol inhaler of breath or wheezing #18 grams inhalational spacing device #1 ea 03/08/24 (Aerochamber MV spacer) escitalopram oxalate 20 mg tablet 20 mg PO DAILY #90 tabs 05/02/25 omeprazole 40 mg capsule,delayed 40 mg PO DAILY #90 caps 05/02/25 release Allergies Allergy/AdvReac Type Severity Reaction Status Date / Time No Known Allergies Allergy Verified 07/16/25 11:34 General Stated Complaint: Orthopedic MEDINA: 4 Exam Narrative Exam Narrative: Gen: Awake and alert, in no apparent distress HEENT: Non-icteric sclera Neck: Supple Lungs: No apparent respiratory distress, normal respiratory effort. CV: Appears well perfused, strong distal pulses Abdomen: Non-distended MSK: Moves 4 extremities without apparent limitation in ROM, with the exception of the right lower extremity. The patient has pain with range of motion, though she is able to do so. Her patella is mobile, some tenderness to palpation over the inferior aspect, with some swelling is in the associated right knee. She has no defects palpable at the quadriceps or patellar tendon. She has tenderness along the lateral joint line, none in the medial or popliteal regions. Distal to this injury she has strong pulses, preserved sensation, and motion of the toes and ankle. Skin: Visualized skin without rashes, cyanosis. Neuro: Normal Gait, no obvious focal deficits or facial asymmetry. Speaks in full, clear sentences. Psych: Appropriate for situation. Course Vital Signs Vital signs: Vital Signs Temperature 36.8 C 07/16/25 11:30 Pulse 86 07/16/25 11:30 Respiratory Rate 20 07/16/25 11:30 Blood Pressure 121/76 07/16/25 11:30 Pulse Oximetry 94 07/16/25 11:30 Temperature 36.8 C 07/16/25 11:30 Pulse 86 07/16/25 11:30 Respiratory Rate 20 07/16/25 11:30 Blood Pressure 121/76 07/16/25 11:30 Blood Pressure Position Sitting 07/16/25 11:30 Pulse Oximetry 94 07/16/25 11:30 Oxygen Delivery Method Room Air 07/16/25 11:30 Oxygen Flow Rate 0 07/16/25 11:30 Medical Decision Making This is a 20-year-old female patient presenting for evaluation of a knee injury. My differential includes but is not limited to fracture, dislocation, internal derangement/sprain. No evidence of neurovascular injury, certainly considered contusion, prepatellar bursitis. No joint redness or skin changes to suggest cellulitis, gout, or other infectious abnormalities. We will obtain an x-ray and provide the patient with Tylenol and ibuprofen for management of pain. -X-ray reviewed by myself, and does show a potential avulsion fracture of the lateral condyle of the femur, which may represent a an LCL injury. She has some prepatellar swelling, and her patella is noted to appear subluxed over to the level of lateral aspect, no clinical exam evidence of dislocation requiring reduction on repeat exam. The patient was placed in a knee immobilizer and already has crutches at home. After the immobilizer was placed she had good sensation, circulation, and movement. A referral to orthopedics was placed and I counseled her on conservative pain and swelling management. At this time, the patient has had a full medical evaluation and is safe for discharge to home. They are hemodynamically stable, ambulatory, and tolerating PO. They are understanding of the follow-up plan and return precautions. They left our facility without incident. Adenike Carson MD Quality:[facility] Health Related Social Needs: Health related social needs transpo insecurity house/econ circumstance lonely/isolated Health related social needs details N/A PFSH All Active Problems (Updated 07/16/25 @ 14:12 by Adenike Carson MD) Suprapatellar swelling of knee joint (Acute) Avulsion fracture of condyle of right femur (Acute) Internal derangement of knee (Acute) Patient desires (Acute) Depression with anxiety (Acute) Left knee pain (Acute) Astigmatism (Acute) Dysarthria (Acute) Eczema (Acute) Asthma (Chronic) Morbid obesity (Acute) Aspiration pneumonia (Acute) Oligomenorrhea (Acute) Pulmonary embolism (Chronic) Surgical History No pertinent past surgical history Family History Mother Depression Substance use disorder Father , 41 Heart disease Asthma Hyperlipidemia Hypertension Substance use disorder Sister Depression Sister Depression Maternal Grandfather , 40 Emphysema lung COPD (chronic obstructive pulmonary disease) Alcohol use disorder Depression Substance use disorder Paternal Grandfather Alcohol use disorder Substance use disorder Maternal Grandmother , 40 Bone cancer Alcohol use disorder Depression Substance use disorder Paternal Grandmother Substance use disorder Other Diabetes Social History Smoking/Tobacco Use Status: Never Tobacco: How many years used: 0 Second Hand Exposure: Yes Smoking risk assessment performed?: Yes Alcohol Intake: never Drug use: Daily Substance use type: marijuana Adopted: No Caregiver/Support person: No Household members: spouse Housing: house Number of Children: 0 number of grandchildren: 0 Communication Needs: None Education Level: high school Do you need help understanding health information?: Never 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 Pets and animals: Yes Pets and animals: cat(s) and dog(s) Sexually active: No Do you think of yourself as: lesbian/moreno/homosexual Current gender identity: female What is your relationship status?: How often do you talk on the phone with friends or family?: three or more times per week How often do you get together with friends or relatives?: once per week How often do you attend protestant or christianity services?: 1-3 times per year Do you belong to any clubs or organized social groups?: no Panel score (0-1 are the most socially isolated patients): 2 Duration: 15-30 minutes/day Frequency: 3-4 times per week Enma/Samaritan: No preference Special enma needs: No Seatbelt use: always Helmet use: Yes Helmet use: always Drive intox or ride w/intox recycling collections driver: No Firearms in home: No Do you feel safe at home: Yes Do you feel safe in your relationship?: Yes Victim of physical abuse: No Victim of emotional abuse: No Victim of sexual abuse: No Would you like helpful sources: No Female Reproductive History Menstrual control method: none History History 0 Para Hx # Term Pregnancies Multiple births Hx # Pregnancies Ectopic pregnancies AB induced Hx Number of Living Children AB spontaneous
--- NOTE | 2025-07-16 16:08 | W.ED.FU ---
Date of service: 07/16/25 Time of Service: 16:09 Follow Up Plan: I received a phone call from our radiologist to over read the x-ray after V rad's. He wanted to emphasize that the fracture fragment pattern is quite suggestive of a patella dislocation with relocation event. There is a residual fracture fragment from the medial aspect of the patella where it impacted on the lateral condyle, with associated hemarthrosis. As the patient was appropriately referred to orthopedics and is in a knee immobilizer with crutches, I do not feel that this patient requires return to the ED, but I did reach out to her by phone and left a message for her to call the emergency department back to discuss these results. Adenike Carson MD
== END 2025-07-16 14:41 | disposition home or self-care (01) ==
PROVIDERS: Emergency Provider Emergency Medicine; PCP Nurse Practitioner Family
DX: S72.491A Other fracture of lower end of right femur, initial encounter for closed fracture (principal); M25.461 Effusion, right knee; S83.014A Lateral dislocation of right patella, initial encounter; W01.0XXA Fall on same level from slipping, tripping and stumbling without subsequent striking against object, initial encounter; Z59.89 Other problems related to housing and economic circumstances; Z60.8 Other problems related to social environment
CPT/HCPCS: 99283 ×2; 29505; 73564

== ENCOUNTER → 2025-07-27 13:07 | Outpatient (CLI) | payer MEDICAID, SELFPAY ==
--- NOTE | 2025-07-27 12:45 | DI.MRI_ITS ---
Exam(s) MR LOWER JOINT RT WO EXAM: MR LOWER JOINT RT WO CLINICAL HISTORY: SURGICAL PLANNING,rt patellar fx,dislocation rt patella,s83.004a,s82.001a TECHNIQUE: Multiplanar multisequence MRI of the knee was performed. COMPARISON: CR,XR XR KNEE RT 4V AP,LAT,BARBARA,PAT from 07/16/2025 CR XR KNEE RT 1V from 07/27/2025 FINDINGS: EFFUSION: There is a prominent joint effusion exhibiting fluid fluid level. There is no Lerner cyst in the popliteal fossa. There is deep subcutaneous edema around the entire circumference of the knee. MARROW/PATELLOFEMORAL COMPARTMENT:The quadriceps and patellar tendons are intact. There is evidence of recent lateral patellar dislocation and sequela impaction of the laterally dislocated patella upon the outer aspect of the lateral femoral condyle. The patella is still somewhat laterally subluxed. Has been avulsion of a significant part of the medial facet of the patella and retropatellar cartilage and this corresponds to the recently described bony fragment located just lateral to the lateral femoral condyle and parallel to the lateral cortical surface of the lateral condyle, consistent with having been left behind at this location when the injured patella relocated more anteriorly. This laterally located fragment measures 1.5 cm craniocaudal by 0.5 cm wide. There is prominent bone edema in the outer aspect the adjacent lateral femoral condyle at the previous impaction site. There has been significant denudation of the retropatellar cartilage over the fractured medial facet. The retropatellar cartilage over the lateral facet is preserved. The lateral patellar retinacular appears intact There is tearing of the medial patellar retinaculum at its junction with the patella and tearing of the patellofemoral ligament in this region. OSSEOUS INCIDENTAL: Incidentally noted is the previously described eccentric none expands bone lesion in the posterior aspect of the metaphysis-diaphysis of the proximal tibia, having the appearance of a probable fibrous cortical defect- nonossifying fibroma. There is no surrounding marrow edema to suggest that this is an aggressive lesion and there is no cortical breakthrough. This bone lesion measures approximately 4 cm craniocaudal length by 1.7 cm AP 2 cm wide. CRUCIATE LIGAMENTS: The anterior cruciate ligament is intact.The posterior cruciate ligament is intact. MEDIAL COMPARTMENT/MEDIAL MENISCUS: There are no tears of the medial meniscus evident.. The articular cartilage in the medial compartment is intact with no significant thinning nor osteochondral defects nor subarticular edema in the medial femoral condyle and medial tibial plateau. No meniscocapsular separation. No osteophytes. MEDIAL COLLATERAL LIGAMENT: The MCL is intact LATERAL COMPARTMENT/LATERAL MENISCUS: There is no evidence of lateral meniscal tear.There is no significant thinning of the articular cartilage over the main weight-bearing surface of the lateral femoral condyle. The bone edema in the outer aspect of the lateral femoral condyle and extending into the the lateral metaphysis of the distal femur is related to the recent patellar dislocation/impaction at this level. ILIOTIBIAL BAND: Intact LATERAL COLLATERAL LIGAMENT COMPLEX: The fibular collateral ligament is intact. The biceps femoris tendon is intact.Popliteus muscle and tendon are intact. IMPRESSION: 1. Main findings here are the above described sequelae of recent lateral patellar dislocation and impaction against the outer aspect of the lateral femoral condyle. There is an avulsed 15 x 5 mm fragment just lateral to the lateral femoral condyle cortex which, given the appearance of the disrupted me dial aspect of the patella is consistent with the patellar fracture fragment which has been left behind at the impaction site, and there is a corresponding significant defect (both osseous and cartilaginous) in the medial patellar facet. There is tearing of the medial patellar retinaculum at its attachment to the medial patella as well as significant injury to the patellofemoral ligament. There is no evidence of tear of the main aspect of the medial collateral ligament. 2. There are no meniscal tears nor cruciate ligament tears. 3. All 3 components of the lateral collateral ligament complex appear intact and there is no fracture or bone edema in the fibular head/styloid process 4. There is a prominent joint effusion-hemarthrosis. No Lerner cyst. There is also deep subcutaneous edema around the circumference of the knee. DATA REPOSITORY:
== END ==
LOC: DI 13:07
PROVIDERS: PCP Nurse Practitioner Family; Visit Provider Student in an Organized Health Care Education/Training Program
DX: S82.001A Unspecified fracture of right patella, initial encounter for closed fracture (principal); S83.004A Unspecified dislocation of right patella, initial encounter
CPT/HCPCS: 73721

== ENCOUNTER 2025-07-27 14:38 | Outpatient (CLI) | payer MEDICAID, SELFPAY ==
--- NOTE | 2025-07-27 10:30 | DI.RAD_ITS ---
Exam(s) XR KNEE RT 1V EXAM: XR KNEE RT 1V INDICATION: displaced fx. COMPARISON: CR,XR XR KNEE RT 4V AP,LAT,BARBARA,PAT from 07/16/2025 TECHNIQUE: 2D digital imaging was performed. Merchant's view. FINDINGS: Fracture defect at the medial patellar facet/apex is again noted. The displaced fracture fragment remains visible adjacent to the lateral femoral condyle. DATA REPOSITORY: RADIATION DOSE DELIVERED:
== END 2025-07-27 14:39 | disposition home or self-care (01) ==
LOC: DIORS 14:38
PROVIDERS: PCP Nurse Practitioner Family; Visit Provider Physician Assistant
DX: S82.001A Unspecified fracture of right patella, initial encounter for closed fracture (principal)
CPT/HCPCS: 73560

== ENCOUNTER 2025-08-04 08:31 | Day surgery (SDC) | payer MEDICAID, SELFPAY ==
--- NOTE | 2025-08-03 16:10 | ANES.PREOP_ITS ---
General Info Date of Service Date Performed: 08/04/25 Height: 5 ft 3 in Weight: 119.748 kg Body Mass Index (BMI): 46.7 Surgical Procedure: Operation Date: 08/04/25 09:55 Proposed Procedure Side Surgeon p Open Knee Osteochondral Fragment Repair VS Loose Body Removal and Medial Patellofemoral Repair Right Anil Alexander MD Meds Allergies and Home Medications Allergies Allergy/AdvReac Type Severity Reaction Status Date / Time No Known Allergies Allergy Verified 08/03/25 08:54 Home Medication Medication Instructions Recorded albuterol sulfate 90 mcg/actuation 2 inh inhalation Q6 H PRN shortness 03/08/24 aerosol inhaler of breath or wheezing #18 gr ams inhalational spacing device #1 ea 03/08/24 (Aerochamber MV spacer) escitalopram oxalate 20 mg tablet 20 mg PO DAILY #90 t abs 05/02/25 omeprazole 40 mg capsule,delayed 40 mg PO DAILY #90 ca ps 05/02/25 release aspirin 325 mg tablet 325 mg PO BID 08/02/25 Current Visit Medications: Current Medications Generic Name Dose Route Start Last Admin Trade Name Freq PRN Reason Stop Dose Admin Ringer's Solution 1,000 mls @ 30 mls/hr 08/04/25 06:00 IV 08/04/25 23:59 INFUSION SHIRLEY Cefazolin Sodium 3,000 mg/ 100 mls @ 200 mls/hr 08/04/25 06:00 Sodium Chloride IV 08/04/25 23:59 PREOP SHIRLEY Tranexamic Acid/Sodium Chloride 1,000 mg in 100 mls @ 600 mls/hr 08/04/25 06:00 IVPB 08/04/25 23:59 PREOP SHIRLEY IV Miscellaneous Supplies 1 each 08/04/25 06:00 Iv Access IV 08/04/25 23:59 DIRECTED SHIRLEY Sodium Chloride 0 ml 08/04/25 06:00 Normal Saline Flush 10 Ml Syr IV 08/04/25 23:59 PRN PRN Sodium Chloride 0 ml 08/04/25 06:00 Normal Saline 10 Ml Vial IJ 08/04/25 23:59 DIRECTED PRN Sterile Water 0 ml 08/04/25 06:00 Water,Injection,Sterile 10 Ml Vial IJ 08/04/25 23:59 DIRECTED PRN PFSH Active Problems Active Problems: Problem Status Onset Code 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 Right patella fracture Acute S82.001A Dislocation of right patella Acute S83.004A Patellar dislocation Acute S83.006A Suprapatellar swelling of knee joint Acute M25.469 Avulsion fracture of condyle of right femur Acute S72.491A Patient desires Acute Z31.9 Depression with anxiety Acute F41.8 Left knee pain Acute M25.562 Astigmatism Acute H52.209 Dysarthria Acute R47.1 Eczema Acute L30.9 Asthma Chronic J45.909 Morbid obesity Acute E66.01 Aspiration pneumonia Acute J69.0 Oligomenorrhea Acute N91.5 Pulmonary embolism Chronic I26.99 Surgical History Surgical History No pertinent past surgical history Tobacco Smoking/Tobacco Use Status: Never Passive smoking exposure: Yes Second hand exposure: Yes Alcohol Alcohol Intake: never Substance Use Substance use: Daily Substance use type: marijuana Prental History History 0 Para Hx # Term Pregnancies Multiple births Hx # Pregnancies Ectopic pregnancies AB induced Hx Number of Living Children AB spontaneous Vital Signs and Lab Results Vital Signs Comment Vital Signs Comment:: Temp Pulse Resp BP Pulse Ox 36.3 C L 74 16 112/73 100 08/04/25 08:40 08/04/25 08:40 08/04/25 08:40 08/04/25 08:40 08/04/25 08:40 Imaging and Studies Imaging and Studies Study information below may be from another EMR and interpreted by another provider. Please see original notes in EMR for more complete details. EKG Summary: Conclusion Sinus rhythm 92 normal axis no stemi I have reviewed and I agree with the emergency room physician's ECG interpretation Echocardiogram Summary: Indications: Pulmonary emboli with evidence of right heart strain Conclusion Normal left ventricular wall thickness and chamber size. Ejection fraction is 60 to 65%. Wall motion is normal Normal right ventricular size and systolic function Both atria are normal in size There is no structural or hemodynamically significant valvular disease Right ventricular systolic pressure could not be estimated Anesthesia Assessment and Plan Anesthesia History Personal History: No History of Anesthesia Complications Family History: No Family History of Anesthesia Complications Exercise Tolerance Exercise Tolerance: Metabolic Equivalents<4 Pertinent Negatives Pertinent Negatives: No Symptoms of GERD (takes daily medication - pt states she throws up every morning at baseline d/t anxiety) and No Major Cardiovascular Symptoms or Complaints Cardiac & Pulmonary Exam Cardiac Exam: Normal S1/S2 Heart Sounds Pulmonary Exam: Wheezing Present and Active Dry Cough Implantable Cardiac Device Does patient have a Pacemaker or an ICD?: No Airway Exam Known Difficult Airway: No Mallampati Class: 2 Mouth Opening: Normal (> 3cm) Thyromental Distance: Greater than 3 cm Neck Range of Motion: Full ROM Neck Circumference: Normal Teeth Condition: Normal Dentition ASA Classification ASA Score: ASA 3 Emergency Case?: No NPO Status NPO Status: NPO Clears >2 hours, Solids >8 hours Status Status: Not Relevant due to Medical History Anesthesia Plan Resuscitation Status: Full Code Anesthesia Technique: General Anesthesia Airway Planned: Endotracheal Tube Pain Management: Surgeon and patient request nerve block Monitors Used: Standard Monitors
[2025-08-04] VITALS (18 sets, daily range): BP systolic 88–132; BP diastolic 33–86; PULSE 69–91; RESP 10–19; TEMP 36.1–36.7; O2SAT 92–100; BMI 46.7
--- NOTE | 2025-08-04 07:16 | PDOC.DSDIS_ITS ---
Date of service: 08/04/25 Discharge Plan Disposition Patient Disposition: Home Condition: Stable Discharge Details Attending Provider: Anil Alexander Primary Care Provider: Gabe Turpin Home Meds and New Rx's Prescriptions: New naproxen 250 mg tablet 250 - 500 mg PO BID PRN (Reason: Moderate pain) Qty: 40 0RF oxycodone 5 mg tablet 5 - 10 mg PO Q4H PRN (Reason: Moderate to severe pain) Qty: 18 0RF aspirin 325 mg capsule 325 mg PO BID 30 Days Qty: 60 0RF Continued albuterol sulfate 90 mcg/actuation HFA aerosol inhaler 2 inh inhalation Q6H PRN (Reason: shortness of breath or wheezing) Qty: 18 0RF (DME) Aerochamber MV Spacer See Rx Instructions .Route Qty: 1 0RF Rx Instructions: As directed escitalopram oxalate 20 mg tablet 20 mg PO DAILY Qty: 90 4RF omeprazole 40 mg capsule,delayed release(DR/EC) 40 mg PO DAILY Qty: 90 4RF Discontinued aspirin 325 mg tablet 325 mg PO BID Discharge Instructions Additional Instructions: Surgery: Right knee open osteochondral fragment repair and medial patellofemoral ligament repair on 08/04/2025. Activity: Protected weightbearing with crutches for 6 weeks. Range of motion 0- 90 degrees for 6 weeks. Maximum flexion 120 degrees for 8 weeks then progress to full. Restore full knee extension as soon as possible. Wiggle toes and ankle pumps to increase circulation. Elevation to minimize swelling and discomfort. A physical therapy prescription will be sent electronically to start about 3 weeks. Strengthening after 10-12 weeks. Recommend avoiding pivoting, deep squatting, and kneeling for 3+ months. Prescriptions: Aspirin 325 mg take twice daily to prevent a blood clot for 30 days, starting tomorrow morning Naproxen 250 mg take 1-2 every 12 hours with a meal as needed for moderate pain Oxycodone 5 mg take 1-2 every 4-6 hours as needed for severe pain You may use [id number] Tylenol (acetaminophen) as needed for mild pain. These pain medications may be taken all at once or in different combinations as needed. Also, recommend Colace (docusate) as a stool softener as surgery and pain medicine cause constipation. You may try [id number] diphenhydramine (Benadryl) 25-50 mg nightly as a sleep aid Dressings: You may loosen/adjust the Rafi bandage for comfort and compression. Leave the Band-Aid underneath in place until follow-up. Please keep it clean and dry. Follow-up: 10-[address] Alexander You may take off the leg compression stockings this evening at home. You may also leave them on a few days longer if you have a history of leg swelling or edema. Let us know right away if you develop any redness, drainage, fevers, chest pain, or trouble breathing. Do not drink alcohol or drive for at least 24 hours after anesthesia. Please call the office during business hours with any questions or concerns. Stand Alone Forms: Anesthesia Discharge Inst., Murray.Nerve Block Instructions, Crutch Training Instructions, Nena Merino (DSU), Portal Information Referrals: Anil Alexander MD [ [facility] STAFF PHYSICIAN, Orthopaedic Surgical] - 08/16/25 10:15 am Discharge Orders Discharge Orders: Discharge Order (Routine); Ordered 08/04/25 Ordered By: Ralf Betancourt DS: Diagnosis Discharge Diagnosis (1) Dislocation of right patella: Status: Acute (2) Right patella fracture: Status: Acute
--- NOTE | 2025-08-04 07:39 | ROE_ITS ---
Operative Note Operative Note PRE-OP DIAGNOSIS: Right knee patella dislocation with osteochondral fracture and intra-articular loose body POST-OP DIAGNOSIS: same PROCEDURE: 1. Right knee open loose body retrieval and repair of osteochondral fracture, CPT #96679 2. Right knee open medial patellofemoral ligament repair, CPT# 98727 SURGEON: Anil Alexander [employer] INSTRUCTOR: Ralf Betancourt ANESTHESIA TYPE: Local By Surgeon, General LMA/ETT and Primary Nerve Block Refer to Anesthesia Record ESTIMATED BLOOD LOSS: 30 COMPLICATIONS: None Patient was transported to: PACU Patient's condition: stable Implants: Arthrex Chondral Darts x4 Indications: Please see complete medical record for details. Findings: Readily laterally unstable patella, not forced to dislocate. Moderately sized intra-articular osteochondral fracture loose body triangular-shaped full- thickness cartilage irregular margins about 2 cm at the widest and 1 cm at the narrowest by about 2 cm long. Cartilage injury throughout the apex and medial facet of the patella as well. Medial patellofemoral ligament avulsion from the medial aspect of the patella. Procedure Description: In the operating room, general anesthesia was induced. The patient was positioned supine on the operating room table. All bony prominences were well- padded. Preoperative antibiotics were administered. The right knee was prepped and draped in the usual sterile fashion. The correct patient, procedure, and side of the procedure were all verified prior to incision. A medial longitudinal incision moderately sized necessary given the soft tissue envelope to open the patella was preinjected with 30 cc of 0.25% bupivacaine with epinephrine. Soft tissue reflected off the patellar to allow for some eversion and plan repair. An open knee medial parapatellar arthrotomy approach was used taking care to avoid injuring any cartilage surfaces on the way in and leave about 1 cm sleeve. Hemarthrosis was evacuated from the joint. Care was taken to locate the loose body in the lateral gutter with the osteochondral fragment found intact stuck in the lateral synovium. It was removed in entirety and examined. Had reasonably good cartilage quality with some subchondral bone and seemed amenable to repair. The patella was everted partially and donor site evaluated. There was irregular margins, which were made more regular and vertical as well as soft tissue fibrinous tissue over a bony bed that was prepared and scraped optimize bone on bone and OCD repair healing. The fragment was then fit to the defect and both the donor site and the fragment prepared similar to a donor and graft to optimize fit. The donor site was made slightly deeper to avoid any prominence on the fracture fragment. It did not fit perfectly and seemed to have lost fracture mckeon owing to some cartilage loss around the margins and irregular shape beneath. The fragment was then manually held in place and secured with a central Arthrex chondral dart. It held nicely and then the repair was completed with 3 additional Arthrex darts around the m argin. The graft was then examined with reasonably good fit, flush and not prominent, and remarkably stable to manual testing and freer probing. The patella was replaced over the trochlea and had nice gliding and tracking while held medially through gentle motion. The knee joint was then copiously irrigated. Along the medial aspect of the patella and the medial deep tissue of the knee the medial retinaculum and medial patellofemoral ligament was evaluated. There was barrera tissue medially that could be grabbed with Sandrine's and recreate tension at the MPFL origin medial femoral condyle. The imbrication style repair was then done using suture tape horizontal mattress buried interrupted bringing the medial tissue against the prepared medial margin patella with about 1 cm of imbrication with the sleeve of tissue then repaired over the top. Patella tracking was then evaluated and good. There was no lateral maltracking. Care was taken to ensure the patella was not brought too far medially or too much tension medially to avoid stressing the OCD repair site. The patella had reasonable lateral excursion but absolutely no lateral subluxation or lateral instability. Deep tissues were copiously irrigated normal saline. The remainder of the arthrotomy was closed using looped suture tape delving back from proximally to distally in the back proximally. Some interrupted suture tapes were used at critical points. Deep tissues were then irrigated and subcutaneous tissue closed with 2-0 Monocryl buried erupted. Skin was closed with 3-0 Monocryl running subcuticular. Skin glue applied over the incision followed by Mepilex bandage. The patient awoke from anesthesia without complication and was transferred to the recovery room in a stable condition. Date of Procedure: 08/04/25
[2025-08-04] MEDS: Lactated Ringers 1,000 ML 30 ML IV (09:35)
--- NOTE | 2025-08-04 10:34 | W.ANESNERVE ---
Nerve Block Single Injection Procedure Date and Time Date Performed: 08/04/25 Procedure Start: 10:08 Location Where Procedure Performed Procedure Location: Day Surgery Unit Reason Performed: Postoperative Analgesia Requesting Provider: Anil Alexander Timeout Performed Timeout Performed: Yes Monitoring Used ECG, Blood Pressure, SpO2 and See EMR for corresponding vital signs Sterility Sterility: Hand Hygiene, Surgical Cap, Surgical Mask, Sterile Gloves and Chlorhexidine Sedation Given During Procedure Sedation Given (Indicate Dose Given): Versed IV Dose:: 4mg Patient Mental Status Patient Mental Status: Awake Nerve Block 1st Nerve Block: Laterality: Right Block Type: Adductor Canal Ultrasound Image Saved?: Yes Needle / Catheter Used: 120mm SonoPlex II Local Anesthetic Bolus (Indicate Dose Given): Lidocaine used for local infiltration of skin, Injected in 3-5ml increments after negative blood aspiration, Exparel Dose:: 10ml and Bupivacaine 0.25% with Epinephrine (1:200,000) Dose:: 10ml Additives (Indicate Dose Given): None Ultrasound: Sterile probe cover and gel used Nerve Stimulator: No twitch or parasthesia noted < 0.5 mA Paresthesia: None Procedure Tolerated: No Complications and Patient tolerated well Procedure Outcome: Successful Procedure Comment: 5ml of 0.25% bupivicaine with epi 1:200,000 at the anterior femoral cutaneous n. Performed By: Chary Benson Supervised By: Negro Lawson
[2025-08-04] MEDS: ceFAZolin 3,000 MG in Normal Saline 100 ML 200 MG IV (13:25)
[2025-08-04] MEDS: TRANEXAMIC ACID/SOD. CHL. 1,000 MG/100 ML BAG 600 MG IVPB (13:35)
[2025-08-04] MEDS: Bupivacaine 0.25% Pres-Free W/EPI 30 ML VIAL ×2 (13:52→15:33)
--- NOTE | 2025-08-04 16:06 | W.ANESPOSTOP ---
Postoperative Evaluation Date, Time and Location Date Performed: 08/04/25 Time Performed: 16:06 Patient Location: Day Surgery Unit Vital Signs Most Recent Imported Vital Signs: Most Recent Vital Signs Temp Pulse Resp BP Pulse Ox 36.1 C L 69 14 132/74 94 08/04/25 15:56 08/04/25 15:56 08/04/25 15:56 08/04/25 15:56 08/04/25 15:56 Pain Score Most Recent Pain Score: Most Recent Pain Score Pain Level 1 08/04/25 15:50 Assessment Mental Status: Awake (Alert & Oriented to Patient Baseline) Airway and Respiratory Function: Patent airway with normal (patient baseline) respiratory exam Cardiovascular Function: Hemodynamically Stable Hydration Status: Adequately Hydrated Nausea & Vomiting: No Nausea or Vomiting Pain: Pt. Denies Any Pain Peripheral Nerve Block: Regional nerve block not resolved at time of post operative discharge
[2025-08-04] MEDS: oxyCODONE 5 MG TAB PO (16:35)
== END 2025-08-04 17:11 | disposition home or self-care (01) ==
LOC: SUR 08:32
PROVIDERS: PCP Nurse Practitioner Family; Visit Provider Student in an Organized Health Care Education/Training Program
PROC: (CPT 27524; principal; 2025-08-04 09:45)
DX: S83.014A Lateral dislocation of right patella, initial encounter (principal); S82.011A Displaced osteochondral fracture of right patella, initial encounter for closed fracture; M23.41 Loose body in knee, right knee; X58.XXXA Exposure to other specified factors, initial encounter; G89.18 Other acute postprocedural pain
CPT/HCPCS: 27415; 27405; 64447; 81025; J0131; J0666; J0690; J1100; J1885; J2003; J2250; J2371; J2405; J2704; J3475

== ENCOUNTER 2025-08-12 13:48 | Emergency (ER) | payer MEDICAID, SELFPAY ==
[2025-08-12 13:50] VITALS: BP 131/82; PULSE 85; RESP 16; TEMP 36.3
--- NOTE | 2025-08-12 14:00 | DI.US_ITS ---
Exam(s) US LOWER EXTREMITY VENOUS RT EXAM: US LOWER EXTREMITY VENOUS RT CLINICAL HISTORY: hx of DVT, now post op with erythema of RLE. TECHNIQUE: Lower extremity venous ultrasound performed using grayscale, color- flow, and spectral Doppler analysis. COMPARISON: No exams were available for comparison FINDINGS: The common femoral, femoral and popliteal veins demonstrate normal compressibility, augmentation, and color Doppler. The posterior tibial and peroneal veins are patent. No saphenous vein thrombosis or other superficial venous thrombosis is seen. No hematoma or Lerner's cyst is seen. IMPRESSION: Negative lower extremity ultrasound. No evidence of DVT. DATA REPOSITORY:
--- NOTE | 2025-08-12 14:09 | ED.GENADUL_ITS ---
Discharge Plan Disposition Patient Disposition: Home Discharge Details Clinical Impression: Petechiae Primary Care Provider: Gabe Turpin ED Provider: Yg Pendleton Home Meds and New Rx's Prescriptions: No Action albuterol sulfate 90 mcg/actuation HFA aerosol inhaler 2 inh inhalation Q6H PRN (Reason: shortness of breath or wheezing) Qty: 18 0RF (DME) Aerochamber MV Spacer See Rx Instructions .Route Qty: 1 0RF Rx Instructions: As directed escitalopram oxalate 20 mg tablet 20 mg PO DAILY Qty: 90 4RF omeprazole 40 mg capsule,delayed release(DR/EC) 40 mg PO DAILY Qty: 90 4RF naproxen 250 mg tablet 250 - 500 mg PO BID PRN (Reason: Moderate pain) Qty: 40 0RF oxycodone 5 mg tablet 5 - 10 mg PO Q4H PRN (Reason: Moderate to severe pain) Qty: 18 0RF aspirin 325 mg capsule 325 mg PO BID 30 Days Qty: 60 0RF Discharge Instructions Instructions: Minor Contusion ED Additional Instructions: As discussed, happily your ultrasound today is negative for a deep venous thrombosis or blood clot of the lower extremity. I suspect that the rash you notice is what we described as petechiae which is when there is been bleeding into a broken capillary bed, and your specific clinical case I think this is secondary to the compressive wrap you have been. However I would monitor the area, if the rash is worsening or you are developing other symptoms such as fever or bleeding I would seek evaluation emergency department again. Please follow-up with your primary care provider regarding your visit to the emergency department today. Be sure to discuss results of all test performed here today to include radiology, and laboratory testing as well as results for any pending cultures. Should your symptoms worsen, or if you develop new concerning symptoms, please return immediately emergency department for further evaluation. Stand Alone Forms: Portal Information HPI General Date/Time Provider Initiated Documentation: 08/12/25 13:55 . HPI Narrative: MDM/Narrative: 20-year-old female past medical history of DVT, status post right knee surgery, presents for erythema of the right lower extremity. Patient denies any other complaints. Physical exam notable for some slight petechiae in the medial aspect of the proximal right tibia, likely secondary to compressive bandage, no increased calor, induration, other erythema, tenderness given patient's prior DVT was also painless, assess for DVT with ultrasound. ED COurse: US negative for DVT. Patient discharged to follow up with PCP/surgeon. Clinical Impression: Petechial rash Disposition: Home HPI: 20-year-old female status post right knee surgery, past medical history of unprovoked DVT, present for evaluation of redness to the right lower extremity. Denies any associated pain, chest pain, shortness of breath leg swelling however prior DVT also presented with about any significant past. Notes that she has been using a compressive bandage, was taken out today noticed a small area of redness to the medial proximal right tibia. ROS: Negative besides as mentioned above Exam: Gen: A&O NAD HEENT: NCAT, EOMI, not icteric. External ears normal. No rhinorrhea. Moist mucous membranes. Neck: Supple, full range of motion, no observable masses, No meningeal sign. Lungs: No Respiratory distress. CV: RRR, no edema. Abdomen: Soft, nondistended, No rebound tenderness. MSK: No joint swelling, no redness. Skin: There is a approximately quarter sized area of petechia over the proximal medial right tibia, without tenderness to palpation, remainder of right lower extremity displays no erythema, increased calor, induration, tenderness. Neuro: Normal Gait, Grossly intact. Psych: Appropriate for situation. Radiology: Exam(s) US LOWER EXTREMITY VENOUS RT EXAM: US LOWER EXTREMITY VENOUS RT CLINICAL HISTORY: hx of DVT, now post op with erythema of RLE. TECHNIQUE: Lower extremity venous ultrasound performed using grayscale, color- flow, and spectral Doppler analysis. COMPARISON: No exams were available for comparison FINDINGS: The common femoral, femoral and popliteal veins demonstrate normal compressibility, augmentation, and color Doppler. The posterior tibial and peroneal veins are patent. No saphenous vein thrombosis or other superficial venous thrombosis is seen. No hematoma or Lerner's cyst is seen. IMPRESSION: Negative lower extremity ultrasound. No evidence of DVT. Related Data Home Medications ?Medication ?Instructions ?Recorded ?Confirmed albuterol sulfate 90 mcg/actuation 2 inh inhalation Q6 H PRN shortness 03/08/24 08/12/25 aerosol inhaler of breath or wheezing #18 gr ams inhalational spacing device #1 ea 03/08/24 08/12/25 (Aerochamber MV spacer) escitalopram oxalate 20 mg tablet 20 mg PO DAILY #90 t abs 05/02/25 08/12/25 omeprazole 40 mg capsule,delayed 40 mg PO DAILY #90 ca ps 05/02/25 08/12/25 release aspirin 325 mg capsule 325 mg PO BID 30 days #60 ca ps 08/04/25 08/12/25 naproxen 250 mg tablet 250 - 500 mg (1 - 2 x 250 mg ) PO 08/04/25 08/12/25 BID PRN Moderate pain #40 tabs oxycodone 5 mg tablet 5 - 10 mg (1 - 2 x 5 mg) PO Q4H 08/04/25 08/12/25 PRN Moderate to severe pain #18 tabs Previous Rx's ?Medication ?Instructions ?Recorded albuterol sulfate 90 mcg/actuation 2 inh inhalation Q6 H PRN shortness 03/08/24 aerosol inhaler of breath or wheezing #18 gr ams inhalational spacing device #1 ea 03/08/24 (Aerochamber MV spacer) escitalopram oxalate 20 mg tablet 20 mg PO DAILY #90 t abs 05/02/25 omeprazole 40 mg capsule,delayed 40 mg PO DAILY #90 ca ps 05/02/25 release aspirin 325 mg capsule 325 mg PO BID 30 days #60 ca ps 08/04/25 naproxen 250 mg tablet 250 - 500 mg (1 - 2 x 250 mg ) PO 08/04/25 BID PRN Moderate pain #40 tabs oxycodone 5 mg tablet 5 - 10 mg (1 - 2 x 5 mg) PO Q4H 08/04/25 PRN Moderate to severe pain #18 tabs Allergies Allergy/AdvReac Type Severity Reaction Status Date / Time No Known Allergies Allergy Verified 08/12/25 13:54 General Stated Complaint: Recheck MEDINA: 4 Course Vital Signs Vital signs: Vital Signs Temperature 36.3 C L 08/12/25 13:50 Pulse 85 08/12/25 13:50 Respiratory Rate 16 08/12/25 13:50 Blood Pressure 131/82 08/12/25 13:50 Temperature 36.3 C L 08/12/25 13:50 Pulse 85 08/12/25 13:50 Respiratory Rate 16 08/12/25 13:50 Blood Pressure 131/82 08/12/25 13:50 Pain Level 2 08/12/25 13:50 Medical Decision Making Quality:SDOH Health Related Social Needs: Health related social needs transpo insecurity house/e con circumstance lonely/isolated Health related social needs details N/A PFSH All Active Problems (Updated 08/12/25 @ 15:29 by Yg Pendleton MD) Petechiae (Acute) Non-ossified fibroma of bone (Acute) Right patella fracture (Acute) Dislocation of right patella (Acute) Patient desires (Acute) Depression with anxiety (Acute) Left knee pain (Acute) Astigmatism (Acute) Dysarthria (Acute) Eczema (Acute) Asthma (Chronic) Morbid obesity (Acute) Aspiration pneumonia (Acute) Oligomenorrhea (Acute) Pulmonary embolism (Chronic) Surgical History No pertinent past surgical history Family History Mother Depression Substance use disorder Father , 41 Heart disease Asthma Hyperlipidemia Hypertension Substance use disorder Sister Depression Sister Depression Maternal Grandfather , 40 Emphysema lung COPD (chronic obstructive pulmonary disease) Alcohol use disorder Depression Substance use disorder Paternal Grandfather Alcohol use disorder Substance use disorder Maternal Grandmother , 40 Bone cancer Alcohol use disorder Depression Substance use disorder Paternal Grandmother Substance use disorder Other Diabetes Social History Smoking/Tobacco Use Status: Current every day Tobacco Type: pipe Tobacco: How many years used: 1 Second Hand Exposure: Yes Smoking risk assessment performed?: Yes Alcohol Intake: never Drug use: Daily Substance use type: marijuana Details: mix thc with tobacco and smokes out of bong daily Adopted: No Caregiver/Support person: No Household members: spouse Housing: house Number of Children: 0 number of grandchildren: 0 Communication Needs: None Education Level: high school Do you need help understanding health information?: Never 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 Pets and animals: Yes Pets and animals: cat(s) and dog(s) Sexually active: No Do you think of yourself as: lesbian/moreno/homosexual Current gender identity: female What is your relationship status?: How often do you talk on the phone with friends or family?: three or more times per week How often do you get together with friends or relatives?: once per week How often do you attend denominational or yarsani services?: 1-3 times per year Do you belong to any clubs or organized social groups?: no Panel score (0-1 are the most socially isolated patients): 2 Duration: 15-30 minutes/day Frequency: 3-4 times per week Enma/Worship: No preference Special enma needs: No Seatbelt use: always Helmet use: Yes Helmet use: always Drive intox or ride w/intox straddle truck driver: No Firearms in home: No Do you feel safe at home: Yes Victim of physical abuse: No Victim of emotional abuse: No Victim of sexual abuse: No Would you like helpful sources: No Additional Social history: [employer] Female Reproductive History Menstrual control method: none History History 0 Para Hx # Term Pregnancies Multiple births Hx # Pregnancies Ectopic pregnancies AB induced Hx Number of Living Children AB spontaneous
== END 2025-08-12 15:33 | disposition home or self-care (01) ==
PROVIDERS: Emergency Provider General Practice; PCP Nurse Practitioner Family
DX: R23.3 Spontaneous ecchymoses (principal)
CPT/HCPCS: 99283 ×2; 93971

== ENCOUNTER 2025-08-17 11:30 | Outpatient (CLI) | payer MEDICAID, SELFPAY ==
--- NOTE | 2025-08-17 10:00 | DI.RAD_ITS ---
Exam(s) XR KNEE RT 1V EXAM: XR KNEE RT 1V CLINICAL HISTORY: F/U RIGHT KNEE. TECHNIQUE: 2D digital imaging was performed of the right knee. Views obtained. Merchant, AP, lateral and PA tunnel views were obtained. COMPARISON: CR,XR XR KNEE RT 4V AP,LAT,BARBARA,PAT from 07/16/2025 CR XR KNEE RT 1V from 07/27/2025 MR MR LOWER JOINT RT WO from 07/27/2025 FINDINGS: BONES: The defect at the medial aspect of the patella is not visualized on the current examination. There is a question of reduction of the previously seen patellar fracture fragment. Please correlate clinically. The fragment previously seen lateral to the femur is not visualized on this examination. No bony destructive lesion is seen. JOINTS: The knee is normally aligned. No joint effusion is seen. SOFT TISSUE: There is soft tissue swelling around the knee particularly medially. IMPRESSION: DATA REPOSITORY: RADIATION DOSE DELIVERED:
== END 2025-08-17 11:31 | disposition home or self-care (01) ==
LOC: DIORS 11:30
PROVIDERS: PCP Nurse Practitioner Family; Visit Provider Student in an Organized Health Care Education/Training Program
DX: S83.004A Unspecified dislocation of right patella, initial encounter (principal)
CPT/HCPCS: 73560